=== PATIENT | female | born 1950 | race Caucasian/White ===

== ENCOUNTER 2018-04-27 19:36 | Inpatient (IN) | payer OTHER, MEDICAID ==
[~2018-04-27] VITALS: Ht 165.1 cm; Wt 88.3 kg
[~2018-04-27 19:36] MED LIST: ACET325T12 PO; ALBU2.5V2 IH; ARIP2TAB3 PO; ASPI-667 PO; CLON0.5T3 PO; DEXT15DR5 BOTH EYES; DOCU-123 PO; FLUT1DIS3 IH; GABA800T PO; GLYB2.5T2 PO; INSU100I13 SQ; INSU100V5 IJ; LORA10TA75 PO; MAGN2400 PO; METF10003 PO; MIRT30TA PO; PANT40TA3 PO; RISP1TAB45 PO; TRAM50TA PO; TRAZ100T15 PO; [UNRECOGNIZED DRUG - CODE] MC
[2018-04-27] MEDS ORDERED: GLYB5TAB3 PO (20:01)
[2018-04-27 20:08] VITALS: BP 107/78
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
[2018-04-27 20:12] LABS: BASOPHIL % 0.2 % (0.0-0.2); EOSINOPHIL # 0.2 10^3/uL (0.0-0.2); EOSINOPHIL % 2.6 % (0.0-5.0); HEMOGLOBIN 11.1 g/dL (12.0-15.0); LYMPHOCYTES # 2.5 10^3/uL (1.0-4.8); MEAN CELL HGB 31.2 pg (26-34); MEAN CELL HGB CONCENTRATION 30.2 g/dL (33-37); MEAN CORP VOLUME 103.1 fL (78-100); MEAN PLATELET VOLUME 10.2 fL (7.8-11.0); MONOCYTES # 0.9 10^3/uL (0.3-0.8); MONOCYTES % 10.9 % (5.0-12.0); NEUTROPHIL # 4.8 10^3/uL (1.8-7.7); RED CELL DISTRIBUTION WIDTH 13.8 % (11.5-14.5); WHITE BLOOD CELL 8.6 10^3/uL (4.5-11.0)
[2018-04-27 20:16] LABS: BILIRUBIN,URINE 1 MG/DL (NEGATIVE); UROBILINOGEN,URINE NORMAL (NEGATIVE)
[2018-04-27] MEDS ORDERED: LORA-447 PO (20:36)
[2018-04-27] MEDS ORDERED: DESV50TA PO (20:36)
[2018-04-27] MEDS ORDERED: TOPI50TA35 PO (20:36)
[2018-04-27] MEDS ORDERED: OXYB10TA PO (20:36)
[2018-04-27] MEDS ORDERED: POLY17PO5 PO (20:36)
[2018-04-27] MEDS ORDERED: BENZ1TAB5 PO (20:36)
[2018-04-27] MEDS ORDERED: AMLO2.5T2 PO (20:36)
[2018-04-27] MEDS ORDERED: ROPI1TAB PO (20:36)
[2018-04-27] MEDS ORDERED: CYCL1DRO OP (20:36)
[2018-04-27] MEDS ORDERED: QUET50TA5 PO (20:36)
[2018-04-27] MEDS ORDERED: LEVO100T5 PO (20:36)
[2018-04-27] MEDS ORDERED: ASPI-484 PO (20:36)
[2018-04-27] MEDS ORDERED: METO-236 PO (20:36)
[2018-04-27] MEDS ORDERED: PREG50CA PO (20:36)
[2018-04-27] MEDS ORDERED: QUET300T5 PO (20:36)
[2018-04-27] MEDS ORDERED: CARB1TAB2 PO (20:36)
[2018-04-27] MEDS ORDERED: LISI10TA2 PO (20:36)
[2018-04-27] MEDS ORDERED: ATOR40TA PO (20:36)
[2018-04-27] MEDS ORDERED: INSU100I13 SQ ×2 (20:36)
[2018-04-27 20:48] LABS: APPEARANCE,URINE CLOUDY (CLEAR); UA COLOR YELLOW (YELLOW)
[2018-04-27 20:56] LABS: ABG PCO2 44.4 mmHg (35.0-45.0); ABG PH 7.246 (7.350-7.450); BE(B) -8.1 mmol/L (-2.0-2.0); HCO3act 18.9 mmol/L (22.0-26.0); pO2 76.5 mmHg (75.0-100.0)
[2018-04-27 21:00] LABS: ALANINE AMINOTRANSFERASE(ML) 22 U/L (12-78); ALKALINE PHOSPHATASE 146 U/L (50-136); ASPARTATE AMINO TRANSFERASE 62 U/L (0-35); CALCIUM 8.7 mg/dL (8.4-10.5); CARBON DIOXIDE 21.2 mmol/L (20.0-32); GLUCOSE 135 mg/dL (70-110)
--- NOTE | 2018-04-27 21:06 | NUR ---
CRITICAL LAB VALUES: LAB REPORTED CRITICAL LAB VALUES FOLLOWS: K+-6.2 CK-1836.4 CK-MB: 15.2 CRITICAL VALUES REPORTED TO EDP.
[2018-04-27 21:10] VITALS: BP 112/62
--- NOTE | 2018-04-27 21:10 | PCM.EKG ---
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
[2018-04-27] MEDS ORDERED: SODIUM BICARBONATE IV STA (21:24)
[2018-04-27] MEDS ORDERED: ROCEPHIN 1,000 MG in NS 100ML 100 ML IV STA (21:24)
[2018-04-27] MEDS ORDERED: NS IV STA (21:24)
[2018-04-27] MEDS ORDERED: VENTOLIN IH STA (21:24)
[2018-04-27] MEDS ORDERED: SPS PO STA (21:24)
[2018-04-27] MEDS ORDERED: DEXTROSE 50%-WATER SYRINGE IV STA (21:24)
[2018-04-27] MEDS ORDERED: HUMULIN R IV ONE (21:30)
[2018-04-27] MEDS ORDERED: NS 100ML 100 ML IV ONE (21:37)
[2018-04-27] MEDS ORDERED: NS 1000ML 1,000 ML ONE (21:37)
[2018-04-27] MEDS ORDERED: SODIUM BICARBONATE IV ONE (21:37)
[2018-04-27] MEDS ORDERED: DEXTROSE 50%-WATER SYRINGE IV ONE (21:37)
[2018-04-27] MEDS ORDERED: ROCEPHIN ONE (21:37)
[2018-04-27] MEDS ORDERED: SPS ONE (21:37)
--- NOTE | 2018-04-27 21:45 | DIREP ---
PROCEDURE:CHEST 1 VIEW COMPARISON:[facility], , CHEST 1 VIEW, 01/02/2015, 03:41 PM. INDICATIONS:medical clearance FINDINGS: LUNGS/PLEURA:No significant pulmonary parenchymal abnormalities. No effusions. VASCULATURE:Normal. Unremarkable pulmonary vasculature. CARDIAC:Normal. No cardiac silhouette abnormality or cardiomegaly. MEDIASTINUM:Normal. No visible mass or adenopathy. BONES:Plate and screw fixation of right clavicle. Fusion hardware lower cervical spine. Remote right posterior lateral rib fractures. OTHER:Negative. CONCLUSION:No acute cardiopulmonary process. Dictated by: Benito Fleming M.D. on 04/27/2018 at 09:43 PM
--- NOTE | 2018-04-27 22:05 | NUR ---
DR. DYKES: EDP ON PHONE WITH DR. DYKES.
[2018-04-27] MEDS ORDERED: VENTOLIN IH ONE (22:20)
[2018-04-27 22:35] VITALS: BP 107/81
--- NOTE | 2018-04-27 23:15 | NUR ---
Patient admitted to [facility] via stretcher. Received report from BRISSA Gomes. Patient stable. Nasal canula in place O2 @2. Bed alarm on
[2018-04-27] MEDS: NS 1000ML 1,000 ML SCH (23:49)
[2018-04-28 00:10] VITALS: BP 96/58
[2018-04-28] MEDS ORDERED: LANOLIN HYDROUS TP ONE (03:47)
[2018-04-28 03:55] VITALS: BP 123/55
[2018-04-28 05:44] LABS: CALCIUM 8.1 mg/dL (8.4-10.5); CARBON DIOXIDE 23.8 mmol/L (20.0-32)
--- NOTE | 2018-04-28 06:46 | NUR ---
Report Report given to oncoming shift
[2018-04-28 08:32] VITALS: BP 142/87
--- NOTE | 2018-04-28 10:00 | NUR ---
Pt TRY TO GET OUT OF BED BYSELF, DID NOT USE CALL LIGHT, REENFORCED PT TO USE CALL LIGHT, BED ALARM ON.
[2018-04-28] MEDS: NS 1000ML 1,000 ML SCH ×3 (10:11→23:52)
[2018-04-28] MEDS: COGENTIN PO SCH (11:50)
[2018-04-28 13:00] VITALS: BP 124/72
--- NOTE | 2018-04-28 14:01 | NUR ---
TELE RHYTHM NOTICED TORSADE POINTE IN TELE MONITOR NEAR NURSES STATION, Pt ASSYMPTOMATIC, NOTIFIED DR. DYKES VIA TEXT.
[2018-04-28] MEDS ORDERED: ARTIFICIAL TEARS BOTH EYES PRN (14:30)
[2018-04-28] MEDS: COLACE PO SCH ×3 (14:53→21:39)
[2018-04-28] MEDS: SINEMET 25/100 PO SCH ×2 (14:53→21:39)
--- NOTE | 2018-04-28 14:56 | NUR ---
pT refused colace 100 mg states " honey I have been going to have bowel movement", pT had 2 bm today.
[2018-04-28] MEDS: ULTRAM PO PRN (16:19)
[2018-04-28 17:10] VITALS: BP 144/62
--- NOTE | 2018-04-28 17:19 | NUR ---
Patient had very large bowel movement about 1600.
[2018-04-28] MEDS ORDERED: ROCEPHIN ONE (17:28)
[2018-04-28] MEDS ORDERED: NS 100ML 100 ML IV ONE (17:28)
[2018-04-28] MEDS ORDERED: ROCEPHIN 1,000 MG in NS 100ML 100 ML IV SCH (17:30)
--- NOTE | 2018-04-28 19:16 | NUR ---
REPORT REPORT RECEIVED FROM PREVIOUS SHIFT AND ASSUMED CARE OF PT
[2018-04-28 19:39] VITALS: BP 141/72
[2018-04-28] MEDS: RESTASIS OP SCH (21:00)
[2018-04-28] MEDS: DESYREL PO SCH (21:38)
[2018-04-28] MEDS: SEROQUEL PO SCH ×2 (21:38)
[2018-04-28] MEDS: ATIVAN PO SCH (21:39)
[2018-04-28] MEDS: DITROPAN PO SCH (21:39)
[2018-04-28] MEDS: TOPAMAX PO SCH (21:39)
[2018-04-28] MEDS: LYRICA PO SCH (21:39)
[2018-04-28] MEDS: REQUIP PO SCH (21:39)
[2018-04-28] MEDS: LIPITOR PO SCH (21:39)
[2018-04-29 00:05] VITALS: BP 126/55
[2018-04-29 04:26] VITALS: BP 144/70
[2018-04-29 06:31] LABS: BASOPHIL % 0.3 % (0.0-0.2); EOSINOPHIL # 0.2 10^3/uL (0.0-0.2); EOSINOPHIL % 2.3 % (0.0-5.0); HEMOGLOBIN 10.6 g/dL (12.0-15.0); LYMPHOCYTES # 2.8 10^3/uL (1.0-4.8); LYMPHOCYTES % 39.6 % (24.0-44.0); MEAN CELL HGB 31.3 pg (26-34); MEAN CELL HGB CONCENTRATION 31.5 g/dL (33-37); MEAN CORP VOLUME 99.4 fL (78-100); MEAN PLATELET VOLUME 10.9 fL (7.8-11.0); MONOCYTES # 0.8 10^3/uL (0.3-0.8); MONOCYTES % 11.4 % (5.0-12.0); NEUTROPHIL # 3.3 10^3/uL (1.8-7.7); NEUTROPHILS % 46.3 % (41.0-85.0); RED CELL DISTRIBUTION WIDTH 13.7 % (11.5-14.5); WHITE BLOOD CELL 7.1 10^3/uL (4.5-11.0)
[2018-04-29 06:43] LABS: CALCIUM 8.3 mg/dL (8.4-10.5); CARBON DIOXIDE 23.9 mmol/L (20.0-32)
[2018-04-29] MEDS: SYNTHROID PO SCH (06:43)
--- NOTE | 2018-04-29 06:50 | NUR ---
REPORT GAVE HANDOFF REPORT TO ONCOMING SHIFT
[2018-04-29 08:00] VITALS: BP 151/71
--- NOTE | 2018-04-29 08:15 | HPH ---
ADMIT DATE: 04/28/2018 CHIEF COMPLAINT: Reported aggressive behavior. HISTORY OF PRESENT ILLNESS: The patient is a 68-year-old woman with a past medical history significant for numerous medical problems, on a very long list of medications, who had presented to the ER from [place] for medical clearance for inpatient psychiatric care. She has history of diabetes mellitus type 2, hyperlipidemia, hypertension, chronic kidney disease reportedly, hypothyroidism, COPD, numerous other medical problems. She is on an extremely long list of medications, is insulin-dependent diabetic. Most of history is difficult to obtain due to her psychiatric comorbidities. She is reportedly a [facility] resident, has a history of bipolar disorder, possible schizophrenia. She has had worsening auditory hallucinations. She is cooperative. No other acute changes. Workup in ER did reveal significant renal failure with mild hyperkalemia. PAST MEDICAL HISTORY: Includes Parkinson's disease, coronary artery disease, COPD, hypothyroidism, insulin-dependent diabetes, hyperlipidemia, hypertension, multiple psychiatric diseases. PAST SURGICAL HISTORY: She reportedly has a right nephrectomy. ALLERGIES: Allergic to SULFA, CODEINE and MORPHINE. HOME MEDICATIONS: List includes Tylenol as needed, Norvasc 2.5 mg daily, aspirin 81 mg daily, atorvastatin 40 mg at night, benztropine 1 mg daily, Sinemet 25/100 mg 3 times a day, Restasis eyedrops, Pristiq 50 mg daily, Colace 100 mg 3 times a day, glyburide 5 mg daily. She takes Lantus 20 units at night and 20 units in the morning, regular insulin sliding scale, levothyroxine 100 mcg daily, lisinopril 10 mg daily, lorazepam 0.5 mg twice a day, metformin 1 gram twice a day, metoprolol succinate 25 mg daily, oxybutynin 10 mg daily, Protonix 40 mg daily, MiraLax 17 g daily, Lyrica 50 mg twice a day, Seroquel 300 mg at night and 50 mg twice a day, Requip 1 mg at night, Topamax 50 mg b.i.d., tramadol p.r.n., trazodone 100 mg at night. SOCIAL HISTORY: Resident of a [facility]. No current alcohol, tobacco or illicit drug use history reported. FAMILY HISTORY: Negative for early coronary artery disease or diabetes. REVIEW OF SYSTEMS: CARDIAC: She denies chest pain or shortness of breath. PULMONARY: No cough, sputum production or pleuritic chest pain. GASTROINTESTINAL: No nausea, vomiting, diarrhea or constipation. All else negative in 10 point review of system except as in HPI. PHYSICAL EXAMINATION: VITAL SIGNS: Upon arrival to the ER, height 165.1 cm, weight 94.1 kilograms, temperature 98.1, pulse 68, respiratory rate 16, blood pressure 107/78, O2 saturation 94% on room air. GENERAL: She is alert, in no acute distress at time of exam. HEENT: Pupils equal, round, reactive to light. Sclerae are anicteric. Oropharynx is clear. Mucous membranes are moist. NECK: Supple, no lymphadenopathy. CARDIOVASCULAR: At time of exam was regular rate and rhythm with occasional ectopy. LUNGS: Clear bilaterally. No wheezing. ABDOMEN: Soft, obese. Bowel sounds are present. EXTREMITIES: No cyanosis, clubbing or significant edema. NEUROLOGIC: Grossly nonfocal. LABORATORY DATA: CBC: White count 3.6, hemoglobin 11.1 and platelets 209. Differential 56% neutrophils, 29% lymphocytes, 11% monocytes. Sodium 138, potassium 6.2, chloride 105, CO2 is 21, BUN 58, creatinine 2.37, glucose 135, calcium is 8.7, total bilirubin 0.3, AST 62, ALT 22, alkaline phosphatase 146, total CK is 1836, CK-MB is 15.2. Troponin I is less than 0.02. C-reactive protein is 0.98. ProBNP 157, total protein 6.4, albumin 3.3. Folate of 7.2. TSH 0.75. B12 is 309. UA is a contaminated sample, not useful for clinical diagnosis; however, does have many bacteria, but negative nitrite. Urine drug screen is negative. IMAGING STUDIES: Chest x-ray performed in the Emergency Room, no acute cardiopulmonary disease process. ASSESSMENT AND PLAN: The patient is a 68-year-old woman here with acute renal failure secondary to acute tubular necrosis due to dehydration with mild hyperkalemia, mild rhabdomyolysis with anemia due to chronic disease, numerous other medical problems. 1. We will give IV fluid hydration. 2. Renal dose medications. 3. She was treated for the hyperkalemia in the Emergency Room. 4. We will continue sliding scale insulin for now. 5. Psychiatry consult. She was sent here for inpatient psychiatric care. 6. IV antibiotics for now. We will continue Rocephin, started in the Emergency Room. Follow up urine cultures for susceptibilities. This was a contaminated sample. Time spent on 04/28/2018 is 45 minutes. Molina Wei MD DR: FROY/lux JOB# [id number] JURGEN
[2018-04-29] MEDS: RESTASIS OP SCH ×2 (09:00→20:15)
[2018-04-29] MEDS: MIRALAX PO SCH ×2 (09:00→11:39)
[2018-04-29] MEDS: SINEMET 25/100 PO SCH ×3 (09:08→20:33)
[2018-04-29] MEDS: COLACE PO SCH ×3 (09:08→20:27)
[2018-04-29] MEDS: ZESTRIL PO SCH (09:08)
[2018-04-29] MEDS: TOPROL XL PO SCH (09:08)
[2018-04-29] MEDS: SEROQUEL PO SCH ×3 (09:09→20:33)
[2018-04-29] MEDS: NORVASC PO SCH (09:09)
[2018-04-29] MEDS: LYRICA PO SCH ×2 (09:09→20:30)
[2018-04-29] MEDS: ATIVAN PO SCH ×2 (09:09→20:28)
[2018-04-29] MEDS: TOPAMAX PO SCH ×2 (09:09→20:31)
[2018-04-29] MEDS: ASPIRIN EC PO SCH (09:10)
[2018-04-29] MEDS: DITROPAN PO SCH ×2 (09:10→20:28)
[2018-04-29] MEDS: NS 1000ML 1,000 ML SCH (09:47)
--- NOTE | 2018-04-29 10:00 | NUR ---
TELE D/C PER VERBAL ORDER OF DR. DYKES.
[2018-04-29] MEDS: COGENTIN PO SCH (11:38)
[2018-04-29 14:15] VITALS: BP 130/74
--- NOTE | 2018-04-29 17:00 | NUR ---
NOTIFIED DR. DYKES REGARDING PtS IV ANTIBIOTIC ROCEFIN AND TO CHANGE TO PO, PER DR. JANIA DYKES ANTIBIOTIC WILL CHANGE TO PO.
--- NOTE | 2018-04-29 17:00 | NUR ---
IV INFILTRATED NOTIFIED DR. DYKES VIA TELEPHONE BY CHARGE NURSE AL BRUMFIELD RECEIVED AN ORDER TO D/C IV, IV D/C APPLIED COLD PACK TO THE SITE.
[2018-04-29 18:00] VITALS: BP 132/59
--- NOTE | 2018-04-29 19:12 | NUR ---
report report received from offgoing shift
[2018-04-29 20:18] VITALS: BP 139/85
[2018-04-29] MEDS: DESYREL PO SCH (20:27)
[2018-04-29] MEDS: ULTRAM PO PRN (20:28)
[2018-04-29] MEDS: LIPITOR PO SCH (20:28)
[2018-04-29] MEDS: REQUIP PO SCH (20:31)
[2018-04-29] MEDS: MACROBID PO SCH (20:41)
--- NOTE | 2018-04-29 23:06 | PNH ---
DATE: 04/29/2018 SUBJECTIVE: No significant events overnight. She is tolerating diet well. She has been cooperative, but confused. OBJECTIVE: VITAL SIGNS: T-max last 24 hours is 98.5, pulse of 52, respiratory rate is 18, blood pressure 132/59 and O2 saturation 95% on room air. GENERAL: She is alert, in no acute distress at time of exam. HEENT: Pupils equal, round, reactive to light. Sclerae are anicteric. Oropharynx is clear. Mucous membranes are moist. NECK: Supple, no lymphadenopathy. CARDIOVASCULAR: At time of exam was regular rate and rhythm. LUNGS: Clear bilaterally. No wheezing. ABDOMEN: Soft, obese. Bowel sounds are present. EXTREMITIES: No cyanosis, clubbing or significant edema. NEUROLOGIC: Grossly nonfocal. LABORATORY DATA: CBC: White count 7.1, hemoglobin 10.6 and platelets 75. Sodium 145, potassium 3.7, chloride 110, CO2 24, BUN 22, creatinine 1.19, glucose 174, calcium is 8.3. ASSESSMENT AND PLAN: The patient is a 68-year-old woman here with resolved hyperkalemia and acute renal failure secondary to acute tubular necrosis with anemia due to chronic disease and thrombocytopenia with numerous other medical problems. 1. We will continue current cardiovascular medications. 2. We will continue her Parkinson's medications. She seems to be well controlled. 3. Likely will be cleared for admissions to Geropsych Unit tomorrow morning if she has a good night tonight. 4. She has acute thrombocytopenia. We will follow clinically. Recheck labs in a.m. Time spent on 04/29/2018 is 25 minutes. Molina Wei MD DR: FROY/lux JOB# [id number]
[2018-04-30 00:15] VITALS: BP 145/66
[2018-04-30 05:10] VITALS: BP 113/63
[2018-04-30] MEDS: SYNTHROID PO SCH (06:09)
[2018-04-30 06:32] LABS: BASOPHIL % 0.4 % (0.0-0.2); EOSINOPHIL # 0.2 10^3/uL (0.0-0.2); HEMOGLOBIN 12.1 g/dL (12.0-15.0); LYMPHOCYTES # 3.5 10^3/uL (1.0-4.8); LYMPHOCYTES % 46.8 % (24.0-44.0); MEAN CELL HGB 31.3 pg (26-34); MEAN CELL HGB CONCENTRATION 31.9 g/dL (33-37); MEAN CORP VOLUME 98.2 fL (78-100); MEAN PLATELET VOLUME 10.3 fL (7.8-11.0); MONOCYTES # 0.9 10^3/uL (0.3-0.8); MONOCYTES % 11.2 % (5.0-12.0); NEUTROPHIL # 2.9 10^3/uL (1.8-7.7); NEUTROPHILS % 38.2 % (41.0-85.0); RED CELL DISTRIBUTION WIDTH 13.8 % (11.5-14.5); WHITE BLOOD CELL 7.6 10^3/uL (4.5-11.0)
--- NOTE | 2018-04-30 06:43 | NUR ---
report report given to o/c shift
[2018-04-30 06:50] LABS: CALCIUM 8.8 mg/dL (8.4-10.5); CARBON DIOXIDE 24.2 mmol/L (20.0-32)
--- NOTE | 2018-04-30 07:00 | NUR ---
REPORT RECEIVED REPORT, ASSUMED CARE FOR PATIENT AT THIS TIME.
--- NOTE | 2018-04-30 08:38 | PRM.DC ---
Discharge Summary Date of Discharge: Apr 30, 2018 Reason for Visit: Renal failure Patient History: No Family History of: Alzheimer's disease Asthma Cerebrovascular disorder Chronic obstructive pulmonary disease Congestive heart failure Diabetes insipidus Diabetes mellitus Hypertension Parkinson's disease Unknown History Present Illness: (1) Acute renal failure Status: Resolved ICD Code: N17.9 - Acute kidney failure, unspecified SNOMED: 20145557 (2) Hyperkalemia, diminished renal excretion Status: Resolved ICD Code: E87.5 - Hyperkalemia SNOMED: 08021538 (3) Bipolar disorder Status: Acute ICD Code: F31.9 - Bipolar disorder, unspecified SNOMED: 01064340 General: Alert, Cooperative, No acute distress HEENT: PERRLA, EOMI Neck: Supple, No JVD Lungs: Clear to auscultation, Normal air movement Heart: Regular rate, Normal S1, Normal S2 Abdomen: Normal bowel sounds, Soft, No tenderness Extremities: No cyanosis Skin: No breakdown Neuro: Normal speech, Cranial nerves 3-12 NL Psych/Mental Status: Mood NL Results(Labs/Rad) Laboratory Tests Test 04/29/18 05:40 04/30/18 06:05 White Blood Count 7.1 10^3/uL 7.6 10^3/uL Red Blood Count 3.39 10^6/uL 3.86 10^6/uL Hemoglobin 10.6 g/dL 12.1 g/dL Hematocrit 33.7 % 37.9 % Mean Corpuscular Volume 99.4 fL 98.2 fL Mean Corpuscular Hemoglobin 31.3 pg 31.3 pg Mean Corpuscular Hemoglobin Concent 31.5 g/dL 31.9 g/dL Red Cell Distribution Width 13.7 % 13.8 % Platelet Count 75 10^3/uL 212 10^3/uL Mean Platelet Volume 10.9 fL 10.3 fL Neutrophils (%) (Auto) 46.3 % 38.2 % Lymphocytes (%) (Auto) 39.6 % 46.8 % Monocytes (%) (Auto) 11.4 % 11.2 % Neutrophils # (Auto) 3.3 10^3/uL 2.9 10^3/uL Lymphocytes # (Auto) 2.8 10^3/uL 3.5 10^3/uL Monocytes # (Auto) 0.8 10^3/uL 0.9 10^3/uL Absolute Immature Granulocyte (auto 0.01 10^3 u/L 0.03 10^3 u/L Eosinophils % 2.3 % 3.0 % Basophils % 0.3 % 0.4 % Basophils # 0.0 10^3/uL 0.0 10^3/uL Eosinophil Count 0.2 10^3/uL 0.2 10^3/uL Sodium Level 145 mmol/L 143 mmol/L Potassium Level 3.7 mmol/L 3.8 mmol/L Chloride Level 110.0 mmol/L 109.0 mmol/L Carbon Dioxide Level 23.9 mmol/L 24.2 mmol/L Glucose Level 174 mg/dL 212 mg/dL Blood Urea Nitrogen 22 mg/dL 12 mg/dL Creatinine 1.19 mg/dL 1.07 mg/dL Calcium Level 8.3 mg/dL 8.8 mg/dL Anion Gap 14.8 13.6 Estimated GFR () 54.4 61.5 BUN/Creatinine Ratio 18.0 11.0 Percent Immature Gran (Cell Imm) 0.10 % 0.40 % Scheduled Amlodipine Besylate (Norvasc), 1 TAB PO DAILY, (Reported) Aspirin (Aspir 81), 1 TAB PO DAILY, (Reported) Atorvastatin 40MG (Lipitor 40MG), 1 TAB PO HS, (Reported) Benztropine Mesylate (Benztropine Mesylate), 1 TAB PO DAILY24, (Reported) Blood Sugar Diagnostic (Accu-Chek Active), 1 EACH MC ACHS, (Reported) Carbidopa/Levodopa (Sinemet 25-100 Mg Tablet), 1 TAB PO TID, (Reported) Cyclosporine (Restasis), 1 DROP OP BID, (Reported) Desvenlafaxine Succinate (Pristiq Er), 50 TAB PO DAILY, (Reported) Docusate Sodium (Colace), 1 CAP PO TID, (Reported) Glyburide (Glyburide), 1 TAB PO DAILY24, (Reported) Insulin Glargine,Hum.rec.anlog (Lantus Solostar), 20 UNITS SQ HS, (Reported) Insulin Glargine,Hum.rec.anlog (Lantus Solostar), 20 UNITS SQ ACB, (Reported) Levothyroxine Sodium (Levothyroxine Sodium), 1 TAB PO DAILY, (Reported) Lisinopril (Lisinopril), 10 TAB PO DAILY, (Reported) Lorazepam (Ativan), 0.5 MG PO BID, (Reported) Metformin Hcl (Metformin Hcl), 1 TAB PO BID, (Reported) Metoprolol Succinate (Metoprolol Succinate), 1 TAB PO DAILY, (Reported) Oxybutynin Chloride (Oxybutynin Chloride Er), 1 TAB PO DAILY, (Reported) Pantoprazole Sodium (Protonix), 1 TAB PO DAILY, (Reported) Polyethylene Glycol 3350 (Miralax), 1 PKT PO DAILY, (Reported) Pregabalin (Lyrica), 1 CAP PO BID, (Reported) Quetiapine Fumarate (Seroquel), 1 TAB PO HS, (Reported) Quetiapine Fumarate (Seroquel), 50 MG PO BID, (Reported) Ropinirole Hcl (Requip), 1 TAB PO HS, (Reported) Topiramate (Topamax), 1 TAB PO BID, (Reported) Trazodone Hcl (Trazodone Hcl), 1 TAB PO HS, (Reported) Scheduled PRN Acetaminophen (Tylenol), 2 TAB PO Q4HR PRN for PAIN, (Reported) Dextran 70/Hypromellose (Artificial Tears Eye Drops), 1 DROP BOTH EYES Q4HR PRN for DRY EYES, (Reported) Insulin Regular, Human (Humulin R), 100 UNIT IJ ACHS PRN for HYPERGLYCEMIA, ( Reported) Tramadol Hcl (Tramadol Hcl), 1 TAB PO Q6 PRN for PAIN 8-10, (Reported) Discontinued Medications Albuterol Sulfate (Albuterol Sulfate), 2.5 MG IH for COPD, (Reported) Discontinued Reason: No Longer Taking Clonazepam (Clonazepam), 1 TAB PO TID, (Reported) Discontinued Reason: No Longer Taking Fluticasone/Salmeterol (Advair 250-50 Diskus), 1 PUFF IH BID, (Reported) Discontinued Reason: No Longer Taking Gabapentin (Neurontin), 1 TAB PO TID, (Reported) Discontinued Reason: Discontinue Glyburide (Glyburide), 1 TAB PO BID, (Reported) Discontinued Reason: Prescription changed Insulin Glargine,Hum.rec.anlog (Lantus Solostar), 85 UNITS SQ HS, (Reported) Discontinued Reason: No Longer Taking Loratadine (Claritin), 1 TAB PO BID PRN for ALLERGIES, (Reported) Discontinued Reason: No Longer Taking Magnesium Hydroxide (Milk Of Magnesia), 1,200 MG PO HS, (Reported) Discontinued Reason: No Longer Taking Mirtazapine (Remeron), 1 TAB PO HS, (Reported) Discontinued Reason: Discontinue Sepsis Evaluation @ Discharge 04/30/18 05:19 Course Sepsis Screening Results: Posi: NEGATIVE Sepsis Qualifier/Stage: NO DEFINITE RISK Vitals & review Data Vital Sign - Last 24 Hours 04/29/18 04/29/18 04/29/18 04/29/18 09:00 09:08 09:09 14:15 Temp 97.8 Pulse 60 77 Resp 18 B/P (MAP) 151/71 151/71 130/74 (92) Pulse Ox 97 O2 Delivery Room Air Room Air 04/29/18 04/29/18 04/29/18 04/30/18 18:00 20:18 22:28 00:15 Temp 98.5 98.2 98.1 Pulse 52 58 60 Resp 18 20 18 B/P (MAP) 132/59 (83) 139/85 (103) 145/66 (92) Pulse Ox 95 96 90 O2 Delivery Room Air Room Air Room Air Room Air 04/30/18 05:10 Temp 98.3 Pulse 58 Resp 16 B/P (MAP) 113/63 (80) Pulse Ox 90 O2 Delivery Room Air Intake and Output 04/29/18 04/29/18 04/30/18 15:00 23:00 07:00 Intake Total 600 ml 310 ml Output Total 600 ml 1000 ml 1900 ml Balance 0 ml -690 ml -1900 ml Laboratory Tests Test 04/29/18 05:40 04/30/18 06:05 White Blood Count 7.1 10^3/uL 7.6 10^3/uL Red Blood Count 3.39 10^6/uL 3.86 10^6/uL Hemoglobin 10.6 g/dL 12.1 g/dL Hematocrit 33.7 % 37.9 % Mean Corpuscular Volume 99.4 fL 98.2 fL Mean Corpuscular Hemoglobin 31.3 pg 31.3 pg Mean Corpuscular Hemoglobin Concent 31.5 g/dL 31.9 g/dL Red Cell Distribution Width 13.7 % 13.8 % Platelet Count 75 10^3/uL 212 10^3/uL Mean Platelet Volume 10.9 fL 10.3 fL Neutrophils (%) (Auto) 46.3 % 38.2 % Lymphocytes (%) (Auto) 39.6 % 46.8 % Monocytes (%) (Auto) 11.4 % 11.2 % Neutrophils # (Auto) 3.3 10^3/uL 2.9 10^3/uL Lymphocytes # (Auto) 2.8 10^3/uL 3.5 10^3/uL Monocytes # (Auto) 0.8 10^3/uL 0.9 10^3/uL Absolute Immature Granulocyte (auto 0.01 10^3 u/L 0.03 10^3 u/L Eosinophils % 2.3 % 3.0 % Basophils % 0.3 % 0.4 % Basophils # 0.0 10^3/uL 0.0 10^3/uL Eosinophil Count 0.2 10^3/uL 0.2 10^3/uL Sodium Level 145 mmol/L 143 mmol/L Potassium Level 3.7 mmol/L 3.8 mmol/L Chloride Level 110.0 mmol/L 109.0 mmol/L Carbon Dioxide Level 23.9 mmol/L 24.2 mmol/L Glucose Level 174 mg/dL 212 mg/dL Blood Urea Nitrogen 22 mg/dL 12 mg/dL Creatinine 1.19 mg/dL 1.07 mg/dL Calcium Level 8.3 mg/dL 8.8 mg/dL Anion Gap 14.8 13.6 Estimated GFR () 54.4 61.5 BUN/Creatinine Ratio 18.0 11.0 Percent Immature Gran (Cell Imm) 0.10 % 0.40 % Current Medications Medications (Trade) Dose Ordered Sig/Jenifer PRN Reason Start Time Stop Time Status Last Admin Amlodipine Besylate (Norvasc) 2.5 mg DAILY 04/29/18 09:00 05/29/18 08:59 04/29/18 09:09 Artificial Tears (Artificial Tears) 1 drops Q4H PRN 04/28/18 14:30 05/28/18 14:29 Aspirin (Aspirin Ec) 81 mg DAILY 04/29/18 09:00 05/29/18 08:59 04/29/18 09:10 Atorvastatin Calcium (Lipitor) 40 mg HS 04/28/18 21:00 05/28/18 20:59 04/29/18 20:28 Benztropine Mesylate (Cogentin) 1 mg DAILY24 04/28/18 11:30 05/28/18 11:29 04/29/18 11:38 Carbidopa/Levodopa (Sinemet 25/100) 1 each TID 04/28/18 15:00 05/28/18 14:59 04/29/18 20:33 Cyclosporine (Restasis) 1 ml BID 04/28/18 21:00 05/28/18 20:59 Docusate Sodium (Colace) 100 mg TID 04/28/18 15:00 05/28/18 14:59 04/29/18 20:27 Levothyroxine Sodium (Synthroid) 100 mcg ACB 04/29/18 06:30 05/29/18 06:29 04/30/18 06:09 Lisinopril (Zestril) 10 mg DAILY 04/29/18 09:00 05/29/18 08:59 04/29/18 09:08 Lorazepam (Ativan) 0.5 mg BID 04/28/18 21:00 05/28/18 20:59 04/29/18 20:28 Metoprolol Succinate (Toprol Xl) 25 mg DAILY 04/29/18 09:00 05/29/18 08:59 04/29/18 09:08 Nitrofurantoin Macrocrystals (Macrobid) 100 mg BID 04/29/18 21:00 05/29/18 20:59 04/29/18 20:41 Oxybutynin Chloride (Ditropan) 5 mg BID 04/28/18 21:00 05/28/18 20:59 04/29/18 20:28 Polyethylene Glycol (Miralax) 17 gm DAILY 04/29/18 09:00 05/29/18 08:59 04/29/18 11:39 Pregabalin (Lyrica) 50 mg BID 04/28/18 21:00 05/28/18 20:59 04/29/18 20:30 Quetiapine Fumarate (Seroquel) 50 mg BID 04/28/18 21:00 05/28/18 20:59 04/29/18 20:33 Quetiapine Fumarate (Seroquel) 300 mg HS 04/28/18 21:00 05/28/18 20:59 04/29/18 20:32 Ropinirole HCl (Requip) 1 mg HS 04/28/18 21:00 05/28/18 20:59 04/29/18 20:31 Topiramate (Topamax) 50 mg BID 04/28/18 21:00 05/28/18 20:59 04/29/18 20:31 Tramadol HCl (Ultram) 50 mg Q6 PRN PAIN 8-10 04/28/18 11:30 05/28/18 11:29 04/29/18 20:28 Trazodone HCl (Desyrel) 100 mg HS 04/28/18 21:00 05/28/18 20:59 04/29/18 20:27 Plan Discharge Date: Apr 30, 2018 Dicharge DX: 1. Acute renal failure, 2. Hyperkalemia, 3. Bipolar disorder Discharge Disposition: Stable Plan Medications per discharge list Diet and activity as tolerated Discharge to [facility] per court order Time spent 25 minutes Problem Qualifiers (1) Acute renal failure: Acute renal failure type: with acute tubular necrosis Qualified Codes: N17.0 - Acute kidney failure with tubular necrosis (2) Bipolar disorder: Active/Remission status: currently active Current bipolar episode type: hypomanic Qualified Codes: F31.0 - Bipolar disorder, current episode hypomanic YESICA DYKES MD Apr 30, 2018 08:37
[2018-04-30 08:47] VITALS: BP 150/110
[2018-04-30] MEDS: TOPAMAX PO SCH (08:54)
[2018-04-30] MEDS: COLACE PO SCH (08:54)
[2018-04-30] MEDS: NORVASC PO SCH (08:55)
[2018-04-30] MEDS: LYRICA PO SCH (08:55)
[2018-04-30] MEDS: ATIVAN PO SCH (08:55)
[2018-04-30] MEDS: MACROBID PO SCH (08:55)
[2018-04-30] MEDS: SINEMET 25/100 PO SCH (08:55)
[2018-04-30] MEDS: ZESTRIL PO SCH (08:55)
[2018-04-30] MEDS: TOPROL XL PO SCH (08:55)
[2018-04-30] MEDS: ASPIRIN EC PO SCH (08:55)
[2018-04-30] MEDS: DITROPAN PO SCH (08:55)
[2018-04-30] MEDS: SEROQUEL PO SCH (08:56)
[2018-04-30] MEDS: RESTASIS OP SCH (09:00)
[2018-04-30] MEDS: MIRALAX PO SCH (09:00)
[2018-04-30 09:19] VITALS: BP 150/110
--- NOTE | 2018-04-30 09:22 | NUR ---
DISCHARGE PATIENT BEING DISCHARGED AT THIS TIME IN STABLE CONDITION. PATIENT BEING [facility] IN [place], [place]. DENIES NEEDING ADDITIONAL RESOURCES AT THIS TIME. COURT ORDERED PAPERS PRESENT. RELINQUISHED CARE FOR PATIENT AT THIS TIME.
== END 2018-04-30 09:28 | DRG 683 ==
LOC: ER 19:36 → MS 22:24 → EDPENDDISTM 04-30 09:20 → EDPENDDISDT 04-30 09:20
PROVIDERS: ADMIT Internal Medicine; ATTEND Internal Medicine
DX: N17.0 Acute kidney failure with tubular necrosis (principal); E87.2 Acidosis; E11.22 Type 2 diabetes mellitus with diabetic chronic kidney disease; D69.6 Thrombocytopenia, unspecified; E87.5 Hyperkalemia; M62.82 Rhabdomyolysis; E86.0 Dehydration; G20 Parkinson's disease; F31.9 Bipolar disorder, unspecified; J44.9 Chronic obstructive pulmonary disease, unspecified; E78.00 Pure hypercholesterolemia, unspecified; E78.5 Hyperlipidemia, unspecified; E03.9 Hypothyroidism, unspecified; I12.9 Hypertensive chronic kidney disease with stage 1 through stage 4 chronic kidney disease, or unspecified chronic kidney disease; N18.9 Chronic kidney disease, unspecified; I25.10 Atherosclerotic heart disease of native coronary artery without angina pectoris; D63.8 Anemia in other chronic diseases classified elsewhere; Z88.2 Allergy status to sulfonamides; Z88.5 Allergy status to narcotic agent; Z79.4 Long term (current) use of insulin; Z79.899 Other long term (current) drug therapy; Z79.84 Long term (current) use of oral hypoglycemic drugs; Z79.82 Long term (current) use of aspirin; Z90.5 Acquired absence of kidney
CPT/HCPCS: 36415; 71045; 80048; 80053; 80061; 80164; 80178; 80307; 81000; 82550; 82553; 82607; 82746; 82803; 82948; 83036; 83880; 84443; 84484; 85025; 85610; 85730; 86140; 87040; 87086; 87186; 93005; 94640; 96374; 96375; 99285; J0696; J7030; J7050; J7613; C9399; J3490; J7060

== ENCOUNTER 2018-04-30 09:10 | Inpatient (IN) | payer OTHER, MEDICAID ==
[~2018-04-30] VITALS: Ht 167.6 cm; Wt 88.9 kg
[~2018-04-30 09:10] MED LIST changes: +AMLO2.5T2 PO; +ASPI-484 PO; +ATOR40TA PO; +BENZ1TAB5 PO; +CARB1TAB2 PO; +CYCL1DRO OP; +DESV50TA PO; +GLYB5TAB3 PO; +LEVO100T5 PO; +LISI10TA2 PO; +LORA-447 PO; +METO-236 PO; +OXYB10TA PO; +POLY17PO5 PO; +PREG50CA PO; +QUET300T5 PO; +QUET50TA5 PO; +ROPI1TAB PO; +TOPI50TA35 PO
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
[2018-04-30 10:36] VITALS: BP 126/76
[2018-04-30] MEDS ORDERED: COGENTIN PO SCH (12:00)
[2018-04-30] MEDS ORDERED: ULTRAM PO PRN ×2 (12:00)
[2018-04-30] MEDS: DIABETA PO SCH (12:00)
[2018-04-30] MEDS ORDERED: HUMULIN R SUBCUT PRN (12:00)
[2018-04-30] MEDS ORDERED: ARTIFICIAL TEARS BOTH EYES PRN (12:30)
[2018-04-30] MEDS ORDERED: HALDOL PO PRN (15:00)
[2018-04-30] MEDS: SINEMET 25/100 PO SCH ×2 (15:00→21:06)
[2018-04-30] MEDS ORDERED: ATIVAN IM PRN (15:00)
[2018-04-30] MEDS ORDERED: ATIVAN PO PRN (15:00)
[2018-04-30] MEDS: COLACE PO SCH ×2 (15:00→21:05)
[2018-04-30] MEDS ORDERED: HALDOL IM PRN (15:00)
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
[2018-04-30] MEDS: GLUCOPHAGE PO SCH (17:00)
[2018-04-30] MEDS: DITROPAN PO SCH (18:00)
[2018-04-30] MEDS: HUMULIN R SUBCUT PRN ×2 (18:08→21:14)
[2018-04-30 19:31] VITALS: BP 126/60
[2018-04-30] MEDS ORDERED: LANTUS SQ SCH (21:00)
[2018-04-30] MEDS ORDERED: SEROQUEL PO SCH ×2 (21:00)
[2018-04-30] MEDS: RESTASIS OP SCH (21:00)
[2018-04-30] MEDS: TOPAMAX PO SCH (21:05)
[2018-04-30] MEDS: SEROQUEL PO SCH (21:05)
[2018-04-30] MEDS: LYRICA PO SCH (21:06)
[2018-04-30] MEDS: REQUIP PO SCH (21:06)
[2018-04-30] MEDS: ATIVAN PO SCH (21:06)
[2018-04-30] MEDS: LIPITOR PO SCH (21:06)
[2018-04-30] MEDS: DESYREL PO SCH (21:06)
[2018-04-30] MEDS: MACROBID PO SCH (21:09)
--- NOTE | 2018-05-01 04:55 | NUR ---
PIRP: P: DTS, DTO,ALTERATION IN MOOD. I: MONITOR Q 15 MINUTES FOR SAFETY, PROVIDE SAFE AND SUPPORTIVE ENVIRONMENT EACH SHIFT.ENCOURAGE DAILY GROUP ATTENDANCE AND PARTICIPATION. PROVIDE MEDICATION ORDERED, PROVIDE QUIET ENVIRONMENT FOR SLEEP. PROVIDE MEDICATION ORDERED R: PT. IS MONITORED Q 15 MINUTES FOR SAFETY, PT. HAS A SAFE AND SUPPORTIVE ENVIRONMENT. PT. HAD A MEDICATION EDUCATION AND NUTRITION GROUP THIS SHIFT. PT. HAS SLEPT ALL NIGHT. PT. HAS TAKEN MEDS ORDERED. PT. HAS BEEN CALM AND COOPERATIVE. PT. DENIES ANY DEPRESSION, ANXIETY OR S/I. PT. IS ALERT AND ORIENTED X 3. PT. HAS HAD NO AGGRESSION THIS SHIFT. P: CONTINUE CURRENT [place] PLAN
[2018-05-01] MEDS: SYNTHROID PO SCH (06:16)
[2018-05-01] MEDS ORDERED: LANTUS SQ SCH (06:30)
[2018-05-01] MEDS ORDERED: MIRALAX ONE (07:57)
[2018-05-01] MEDS ORDERED: CELEXA ONE (07:57)
[2018-05-01] MEDS ORDERED: ZESTRIL ONE (07:57)
[2018-05-01] MEDS ORDERED: ASPIRIN ONE (07:58)
[2018-05-01] MEDS ORDERED: PROTONIX PO ONE (07:58)
[2018-05-01] MEDS ORDERED: TOPROL XL PO ONE (07:59)
[2018-05-01] MEDS: HUMULIN R SUBCUT PRN ×3 (08:09→17:20)
[2018-05-01] MEDS: MIRALAX PO SCH (09:00)
[2018-05-01] MEDS: RESTASIS OP SCH ×2 (09:00→20:22)
[2018-05-01 09:50] VITALS: BP 116/51
[2018-05-01] MEDS: PROTONIX PO SCH (09:53)
[2018-05-01] MEDS: ASPIRIN EC PO SCH (09:53)
[2018-05-01] MEDS: LYRICA PO SCH ×2 (09:54→20:20)
[2018-05-01] MEDS: GLUCOPHAGE PO SCH ×2 (09:54→17:19)
[2018-05-01] MEDS: COLACE PO SCH ×3 (09:54→20:20)
[2018-05-01] MEDS: TOPAMAX PO SCH ×2 (09:54→20:19)
[2018-05-01] MEDS: TOPROL XL PO SCH (09:54)
[2018-05-01] MEDS: CELEXA PO SCH (09:54)
[2018-05-01] MEDS: DITROPAN PO SCH (09:54)
[2018-05-01] MEDS: SINEMET 25/100 PO SCH ×3 (09:55→20:20)
[2018-05-01] MEDS: SEROQUEL PO SCH ×2 (09:55→20:20)
[2018-05-01] MEDS: ZESTRIL PO SCH (09:55)
[2018-05-01] MEDS: MACROBID PO SCH ×2 (09:55→20:20)
[2018-05-01] MEDS: ATIVAN PO SCH ×2 (09:56→20:20)
--- NOTE | 2018-05-01 10:00 | NUR ---
medication refusal pt refuses celexa. pt states "I want to talk to the doctor first." Reported to charge nurse
[2018-05-01] MEDS: DIABETA PO SCH (12:15)
[2018-05-01] MEDS: ULTRAM PO PRN (14:22)
--- NOTE | 2018-05-01 15:23 | NUR ---
VSEE Pt was seen by Dr. Wu via telemed. No new orders received @ this time, reinforced importance of medication compliance with pt.
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
[2018-05-01] MEDS: DESYREL PO SCH (20:19)
[2018-05-01] MEDS: LIPITOR PO SCH (20:19)
[2018-05-01] MEDS: REQUIP PO SCH (20:20)
[2018-05-01] MEDS: TYLENOL PO PRN (20:21)
[2018-05-01] MEDS: LANTUS SQ SCH (20:36)
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
[2018-05-01 21:08] VITALS: BP 101/55
--- NOTE | 2018-05-02 05:07 | NUR ---
PIRP P- ALTERED THOUGHT PROCESS AND DTS/DTO I- PROVIDE SAFE AND SUPPORTIVE ENVIRONMENT,Q 15 MIN. MONITORING,PROVIDE MEDICATION ORDERED. R- PT. WAS ORIENTED TIMES TWO.DENIES DEPRESSION BUT RATES ANXIETY 3. DENIES SI TONIGHT. ATTENDED GROUP,PARTICIPATED IN ACTIVITY,ATE SNACKS AND WAS HYPERVERBAL. TOOK MEDICATION ORDERED. MEDICATION EDUCATION WAS PROVIDED ON CELEXA AND PT. VOICED UNDERSTANDING.HAS NOT EXHIBITED DTO/DTS TONIGHT. PT. WAS ENCOURAGED TO WEAR YELLOW NON SKID SOCKS BUT SHE REFUSED. P- WILL CONTINUE WITH CURRENT [place]. PLAN.
[2018-05-02] MEDS: SYNTHROID PO SCH (06:15)
[2018-05-02 07:56] VITALS: BP 143/71
[2018-05-02] MEDS: RESTASIS OP SCH ×2 (09:00→20:33)
[2018-05-02] MEDS: GLUCOPHAGE PO SCH ×2 (09:27→16:54)
[2018-05-02] MEDS: MIRALAX PO SCH (09:27)
[2018-05-02] MEDS: ATIVAN PO SCH ×2 (09:29→20:32)
[2018-05-02] MEDS: CELEXA PO SCH (09:31)
[2018-05-02] MEDS: TYLENOL PO PRN (09:31)
[2018-05-02] MEDS: COLACE PO SCH ×3 (09:32→20:33)
[2018-05-02] MEDS: MACROBID PO SCH ×2 (09:32→20:33)
[2018-05-02] MEDS: DITROPAN PO SCH (09:33)
[2018-05-02] MEDS: ASPIRIN EC PO SCH (09:34)
[2018-05-02] MEDS: SINEMET 25/100 PO SCH ×3 (09:34→20:33)
[2018-05-02] MEDS: PROTONIX PO SCH (09:35)
[2018-05-02] MEDS: TOPAMAX PO SCH ×2 (09:36→20:33)
[2018-05-02] MEDS: TOPROL XL PO SCH (09:36)
[2018-05-02] MEDS: LYRICA PO SCH ×2 (09:37→20:32)
[2018-05-02] MEDS: SEROQUEL PO SCH ×2 (09:37→20:33)
[2018-05-02] MEDS: ZESTRIL PO SCH (09:39)
--- NOTE | 2018-05-02 12:30 | NUR ---
INSULIN NO SLIDE SCALE INSULIN GIVEN. PT DID NOT EAT LUNCH.
[2018-05-02] MEDS: DIABETA PO SCH (12:54)
--- NOTE | 2018-05-02 17:18 | NUR ---
PIRP P: Withdrawn, defiant I: Monitor for changes in usual behavior, q15 min monitoring, assess for psychotic symptoms, reinforce unit rules, provide safe and supportive environment, give clear and simple instructions, redirect with verbalization, teach medication compliance, alternate rest/activity, educate regarding group activities R: Pt has been withdrawn majority of shift. Refused breakfast, AM snack, and lunch. When staff encouraged pt to get OOB, pt would move legs and turn other way. Staff was able to get pt OOB and in shower before afternoon snack, pt was cooperative. Requires verbal redirection and reinforcement of appropriate behaviors. Denies depression, anxiety, SI/HI. Stated, "You guys are so nice here. I wish I could stay here forever. I even told the doctor I don't want to leave." Pt is alert and oriented to self, town, and month. No combative or threatening behaviors noted, exhibits no psychotic symptoms @ this time. Has taken medications as ordered, interacts appropriately when approached. P: Pt reports she will take medicine and "try to stay up" during the day.
[2018-05-02 19:00] VITALS: BP 96/52
--- NOTE | 2018-05-02 20:09 | CNH ---
DATE OF CONSULTATION: 05/01/2018 REFERRING PHYSICIAN: Dr. Wu with Psychiatry. REASON FOR CONSULTATION: Medical management of multiple medical problems. HISTORY OF PRESENT ILLNESS: Please refer to history and physical dictated by pr on 04/29/2018 for full details. The patient was initially admitted to medical floor. She was sent to the hospital for admission to the Geropsych Unit due to aggressive behavior. She was noted to be in renal failure, was admitted to medical floor. Over the next few days with hydration, her renal function did improve towards normal. She was cooperative. There were no complaints of pain or difficulty breathing. She has relatively poor functional status. PAST MEDICAL HISTORY: Per H and P dictated by pr on 04/29/2018. PAST SURGICAL HISTORY: Per H and P dictated by pr on 04/29/2018. ALLERGIES: Per H and P dictated by pr on 04/29/2018. HOME MEDICATIONS: Per H and P dictated by pr on 04/29/2018. SOCIAL HISTORY: Per H and P dictated by pr on 04/29/2018. FAMILY HISTORY: Per H and P dictated by pr on 04/29/2018. REVIEW OF SYSTEMS: CARDIAC: Denies chest pain or shortness of breath. PULMONARY: No cough, sputum production or pleuritic chest pain. GASTROINTESTINAL: No nausea, vomiting, diarrhea or constipation. All else negative in 10 point review of system except as in HPI. PHYSICAL EXAMINATION: VITAL SIGNS: Upon arrival to the [facility] Unit, height 167.6 cm, weight 88 kilograms, temperature 98.2, pulse 52, respiratory rate is 18, blood pressure 126/76, O2 saturation 94% on room air. GENERAL: She is alert, chronic ill-appearing lady. HEENT: Pupils equal, round, reactive to light. Sclerae are anicteric. Oropharynx is clear. Mucous membranes are moist. NECK: Supple. No lymphadenopathy. CARDIOVASCULAR: At time of exam is regular rate and rhythm. LUNGS: Clear bilaterally with shallow inspiratory effort. ABDOMEN: Soft, obese. Bowel sounds are present. EXTREMITIES: No cyanosis, clubbing or significant edema. NEUROLOGIC: Grossly nonfocal. LABORATORY DATA: Most recent workup shows normal CBC with WBC of 7.6 and hemoglobin 12.1. Her last renal function showed BUN of 12 with creatinine of 1.07 on the 3rd. ASSESSMENT AND PLAN: This patient is a 68-year-old woman with bipolar disorder with reported aggressive behavior, admitted with Parkinson's disease, coronary artery disease, chronic obstructive pulmonary disease, hypothyroidism, insulin-dependent diabetes, hyperlipidemia, hypertension and resolved acute renal failure. 1. We will continue Parkinson's medications. 2. Continue cardiovascular medications at current dose. 3. Appropriate p.r.n. pain and nausea medications. 4. We will start her on Lantus, also cover sliding scale insulin and ADA diet. Thank you very much for this consult. We will follow with you. Time spent on 05/01/2018 is 45 minutes. Molina Wei MD DR: FROY/lux JOB# [id number]
[2018-05-02] MEDS: LIPITOR PO SCH (20:32)
[2018-05-02] MEDS: REQUIP PO SCH (20:33)
[2018-05-02] MEDS: DESYREL PO SCH (20:33)
[2018-05-02] MEDS: LANTUS SQ SCH (20:48)
--- NOTE | 2018-05-03 04:45 | NUR ---
PIRP P- ALTERED THPUGHT PROCESS ,DTO.DTS I- PROVIDE SAFE AND SUPPORTIVE ENVIRONMENT,PROVIDE MEDICATION ORDERED,Q 15 MIN. MONITORING. R- PT. DENIED DEPRESSION AND RATED ANXIETY 5. ATTENDED GROUP,ATE SNACKS ,MEDICATION EDUCATION WAS PROVIDED AND PT. VOICED UNDERSTANDING.TOOK MEDICATION ORDERED. PT. STATED THERE WAS A PICTURE ON THE FLOOR IN FRONT OF HER THAT WENT TO A GAME,AN 8X10. THERE WAS NOTHING ON THE FLOOR. STAFF TOLD HER THERE WAS NOTHING ON THE FLOOR BUT SHE INSISTED THERE WAS AND STATED SHE WAS LOOKING AT IT AND KEPT FEELING OF THE FLOOR SAYING IT WAS THERE THAT SHE JUST COULDN'T PICK IT UP. PT. DID NOT EXHIBIT DTO OR DTS. DENIES HI/SI TONIGHT. P- WILL CONTINUE WITH CURRENT [place]. PLAN.
[2018-05-03] MEDS: SYNTHROID PO SCH ×2 (06:25→06:30)
[2018-05-03 07:41] VITALS: BP 136/67
[2018-05-03] MEDS: RESTASIS OP SCH ×2 (09:00→20:36)
[2018-05-03] MEDS: ZESTRIL PO SCH (10:00)
[2018-05-03] MEDS: ATIVAN PO SCH ×2 (10:20→20:34)
[2018-05-03] MEDS: MACROBID PO SCH ×2 (10:20→20:35)
[2018-05-03] MEDS: CELEXA PO SCH (10:20)
[2018-05-03] MEDS: GLUCOPHAGE PO SCH ×2 (10:20→16:49)
[2018-05-03] MEDS: ASPIRIN EC PO SCH (10:20)
[2018-05-03] MEDS: LYRICA PO SCH ×2 (10:20→20:34)
[2018-05-03] MEDS: PROTONIX PO SCH (10:21)
[2018-05-03] MEDS: SEROQUEL PO SCH ×2 (10:21→20:34)
[2018-05-03] MEDS: SINEMET 25/100 PO SCH ×3 (10:21→20:34)
[2018-05-03] MEDS: MIRALAX PO SCH (10:21)
[2018-05-03] MEDS: TOPROL XL PO SCH (10:21)
[2018-05-03] MEDS: TOPAMAX PO SCH ×2 (10:21→20:35)
[2018-05-03] MEDS ORDERED: ZESTRIL ONE (10:21)
[2018-05-03] MEDS: COLACE PO SCH ×3 (10:21→20:34)
[2018-05-03] MEDS: DITROPAN PO SCH (10:22)
[2018-05-03] MEDS: DIABETA PO SCH (12:07)
[2018-05-03] MEDS: HUMULIN R SUBCUT PRN ×2 (12:12→20:54)
--- NOTE | 2018-05-03 18:01 | NUR ---
PIRP: P: ALTERED THOUGHT PROCESS, DTS, DTO I: provide medications as ordered by physician. Encourage attendance and participation of all groups. Allow patient to voice feelings and concerns. Assist patient in differentiating between internal and external reality. Monitor patient's behavior for changes that may put others or herself at risk of injury. R: Patient has taken all medications this shift. She has been calm and cooperative, but at times demanding and attention seeking. She has poor self control and has child like behavior. She has NOT been combative physically or verbally this shift. Patient requires strict boundaries with rules. She remains paranoid. She has participated in groups. P: Continue current plan of care. Patient was seen by Dr. Wu via telemed today and Seroquel was changed to 150mg po daily and 200 mg at HS.
[2018-05-03 19:10] VITALS: BP 114/56
[2018-05-03] MEDS: REQUIP PO SCH (20:34)
[2018-05-03] MEDS: LIPITOR PO SCH (20:34)
[2018-05-03] MEDS: DESYREL PO SCH (20:34)
[2018-05-03] MEDS: LANTUS SQ SCH (20:53)
--- NOTE | 2018-05-04 05:05 | PNH ---
DATE: 05/03/2018 PSYCHIATRIC PROGRESS NOTE TIME: 9:00-9:30. HISTORY OF PRESENT ILLNESS: The patient is a very complicated, elderly female with an extensive history of bipolar disorder type 1, presenting on this occasion with bipolar disorder, depressed, psychotic with suicidal intent, holding a knife to her throat in the detention to kill herself. The patient with depressive symptoms with depressed mood, disturbed sleep, appetite, energy and concentration. The patient is having auditory hallucinations at this time, some grandiosity. No overt manic symptoms specifically, no racing thoughts, no excess energy, no periods of euphoria, no pressured speech. Medication changes have been made today. This patient is being observed closely for any harm to herself or anyone else. She is a candidate for ongoing hospitalization. OBJECTIVE: VITAL SIGNS: Blood pressure 136/67, pulse 90, respirations 18, temperature 98.6, oxygen saturation 97%. REVIEW OF SYSTEMS: HEENT: Normal. RESPIRATORY: No shortness of breath, coughing, or wheezing. CARDIAC: No chest pain or palpitations. GASTROINTESTINAL: No nausea, vomiting, diarrhea or constipation. GENITOURINARY: No difficulty with urination. EXTREMITIES: No swelling or edema. Bilateral decreased lower extremity strength. NEUROLOGIC: Normal. ENDOCRINE: Normal. MENTAL STATUS EXAMINATION: Reveals an alert female, severely decreased psychomotor activity. Concentration and memory intact. Speech and language are normal. Orientation full. Intelligence is average. Mood depressed. Affect constricted. Insight and judgment are poor. Thought is illogical, positive hallucinations. ASSESSMENT AND PLAN: DIAGNOSES: AXIS I: Bipolar disorder, depressed, psychotic. AXIS II: Deferred. AXIS III: Refer to past medical history. TREATMENT AND PLAN: 1. This patient was admitted involuntarily to [facility] and is being observed closely. 2. She has been placed on medications, specifically Seroquel increased today to 150 mg in the morning and 200 mg at bedtime, Celexa 20 mg a day, trazodone 100 mg at bedtime and Ativan 0.5 mg twice a day. 3. She is participating in groups, therapies and activities. 4. The patient will be discharged back to the detention, when it is felt she represents no risk or danger to herself or others. Stephan Wu MD DR: JASWANT/lux JOB# [id number]
[2018-05-04] MEDS: SYNTHROID PO SCH (06:09)
--- NOTE | 2018-05-04 06:19 | NUR ---
PIRP- P-ALTERED THOUGHT PROCESS,DTO,DTS I- PROVIDE MEDICATION ORDERED,Q 15 MIN. MONITORING,PROVIDE SAFE AND SUPPORTIVE ENVIRONMENT AND PROVIDE 1:1 INTERVENTION ALLOWING PT. TO EXPRESS THOUGHTS AND FEELINGS. R-PT. WAS ORIENTED TIMES THREE. PT. PHONED HER SON BUT THERE WAS NO ANSWER SO SHE LEFT MESSAGE THEN SHE WENT TO HER ROOM AND SAT LOOKING OUT THE WINDOW. ATTENDED GROUP AND ATE SNACKS. AT TIMES PT. IS INTRUSIVE. TOOK MEDICATION ORDERED. MEDICATION EDUCATION PROVIDED. HAS NOT EXHIBITED DTO/DTS THIS SHIFT. HAS RESTED IN BED WITH EYES CLOSED FOR 6.25 HOURS OF THIS TIME TONIGHT. P- WILL CONTINUE WITH CURRENT [place]. PLAN.
[2018-05-04] MEDS: RESTASIS OP SCH ×2 (09:00→20:43)
[2018-05-04] MEDS: SINEMET 25/100 PO SCH ×3 (09:00→20:47)
[2018-05-04] MEDS: TOPROL XL PO SCH (09:00)
[2018-05-04] MEDS: ZESTRIL PO SCH (09:00)
[2018-05-04] MEDS: COLACE PO SCH ×3 (09:00→20:48)
--- NOTE | 2018-05-04 09:35 | NUR ---
medication This nurse has made several attempts to wake pt. Pt refuses to get out of bed at this time.
[2018-05-04 12:34] VITALS: BP 134/75
[2018-05-04] MEDS: ATIVAN PO SCH ×2 (12:40→20:48)
[2018-05-04] MEDS: MIRALAX PO SCH (12:40)
[2018-05-04] MEDS: DIABETA PO SCH (12:40)
[2018-05-04] MEDS: ASPIRIN EC PO SCH (12:40)
[2018-05-04] MEDS: PROTONIX PO SCH (12:40)
[2018-05-04] MEDS: DITROPAN PO SCH (12:40)
[2018-05-04] MEDS ORDERED: ZESTRIL ONE (12:40)
[2018-05-04] MEDS: SEROQUEL PO SCH ×2 (12:41→20:48)
[2018-05-04] MEDS: MACROBID PO SCH ×2 (12:41→20:48)
[2018-05-04] MEDS: LYRICA PO SCH ×2 (12:41→20:48)
[2018-05-04] MEDS: TOPAMAX PO SCH ×2 (12:41→20:48)
[2018-05-04] MEDS: NICOTINE 21MG PATCH TD SCH (12:41)
[2018-05-04] MEDS: GLUCOPHAGE PO SCH ×2 (12:41→16:52)
[2018-05-04] MEDS: CELEXA PO SCH (12:41)
[2018-05-04] MEDS: HUMULIN R SUBCUT PRN ×2 (12:42→16:54)
--- NOTE | 2018-05-04 12:51 | NUR ---
metoprolol held apical heart rate 52. medication held
[2018-05-04] MEDS: ULTRAM PO PRN (13:43)
--- NOTE | 2018-05-04 16:44 | NUR ---
PIRP: P: altered thought process I: Provide medications as ordered by physician. Encourage attendance and participation of all groups. Allow patient to voice feelings and concerns. Assist patient in differentiating between internal and external reality. Provide groups that require focus and concentration R: Patient has taken all medications as ordered. She slept in today refusing to get up until 1130 and was incontinent with urine. She would not allow staf to assist her with changing clothing and later gave self a shower and shaved. She has participated in OT group and has been calm and cooperative pleasant. She has not been suicidal or combative. P: Continue current plan of care.
[2018-05-04 19:16] VITALS: BP 94/64
[2018-05-04] MEDS ORDERED: TOPAMAX ONE (20:44)
[2018-05-04] MEDS: REQUIP PO SCH (20:47)
[2018-05-04] MEDS: DESYREL PO SCH (20:48)
[2018-05-04] MEDS: LIPITOR PO SCH (20:49)
[2018-05-04] MEDS: LANTUS SQ SCH (20:54)
[2018-05-04 21:30] VITALS: BP 138/68
--- NOTE | 2018-05-05 05:47 | NUR ---
PIRP P DTS,DTO, Alteration in Mood I Medication to be given as prescribed by Dr, Discourage self harm behaviors. Monitor patient every 15 minutes for safety. Encourage sleep. Patient to cope with anger and stress positively. Group attendance to be stressed to patient. R Patient has taken medications as directed. Patient has not displayed any self harm behaviors. Patient has been monitored every 15 minutes for safety. Patient has slept 7.25 hours so far. Patient has not displayed any anger . Patient did sit and color a picture. P Continue plan of care
[2018-05-05] MEDS: SYNTHROID PO SCH (06:21)
[2018-05-05 08:00] VITALS: BP 117/58
[2018-05-05] MEDS ORDERED: ZESTRIL ONE (08:37)
[2018-05-05] MEDS: CELEXA PO SCH (08:39)
[2018-05-05] MEDS: SINEMET 25/100 PO SCH ×3 (08:39→21:27)
[2018-05-05] MEDS: NICOTINE 21MG PATCH TD SCH (08:39)
[2018-05-05] MEDS: ATIVAN PO SCH ×2 (08:39→21:28)
[2018-05-05] MEDS: ASPIRIN EC PO SCH (08:39)
[2018-05-05] MEDS: LYRICA PO SCH ×2 (08:39→21:28)
[2018-05-05] MEDS: SEROQUEL PO SCH ×2 (08:40→21:27)
[2018-05-05] MEDS: MACROBID PO SCH ×2 (08:40→21:27)
[2018-05-05] MEDS: PROTONIX PO SCH (08:40)
[2018-05-05] MEDS: TOPAMAX PO SCH ×2 (08:40→21:28)
[2018-05-05] MEDS: DITROPAN PO SCH (08:40)
[2018-05-05] MEDS: COLACE PO SCH ×3 (08:40→21:28)
[2018-05-05] MEDS: MIRALAX PO SCH (08:40)
[2018-05-05] MEDS: GLUCOPHAGE PO SCH ×2 (08:40→17:03)
[2018-05-05] MEDS: ZESTRIL PO SCH (08:41)
[2018-05-05] MEDS: TOPROL XL PO SCH (08:41)
[2018-05-05] MEDS: RESTASIS OP SCH ×2 (08:42→21:00)
--- NOTE | 2018-05-05 09:05 | NUR ---
VSEE Pt was seen by Dr. Wu via telemedicine. No new orders received @ this time.
[2018-05-05] MEDS: HUMULIN R SUBCUT PRN (12:16)
[2018-05-05] MEDS: DIABETA PO SCH (12:16)
--- NOTE | 2018-05-05 12:54 | PNH ---
DATE: 05/05/2018 PSYCHIATRIC PROGRESS NOTE TIME: 8:20-8:40. HISTORY OF PRESENT ILLNESS: The patient is an elderly female with a very long history of bipolar disorder type 1, severe admitted on this occasion from the group home with bipolar disorder, depression with psychosis. The patient's mood is depressed. Affect is constricted. Positive anhedonia, poor sleep, appetite, energy and concentration. She did put a knife to her throat in the group home, threatening to kill herself. She does not evidence symptoms of antoinette. No racing thoughts. No euphoria no impulsivity. No grandiosity.. Psychotic symptoms were present. She is having some auditory hallucinations. The patient remains quite symptomatic at this time, represents a risk or danger to herself and therefore is a candidate for ongoing hospitalization. OBJECTIVE: VITAL SIGNS: Temperature 98.6, pulse 60, respirations 16, oxygen saturation 97%, blood pressure 117/58. REVIEW OF SYSTEMS: HEENT: Normal. RESPIRATORY: No shortness of breath, coughing, or wheezing. CARDIAC: No chest pain or palpitations. GASTROINTESTINAL: No nausea, vomiting, diarrhea or constipation. GENITOURINARY: No difficulty with urination. EXTREMITIES: Bilateral lower extremity weakness. MUSCULOSKELETAL: No muscle pain. NEUROLOGIC: Normal. ENDOCRINE: Normal. MENTAL STATUS EXAMINATION: Reveals an alert female with decreased psychomotor activity. Concentration and memory intact. Speech and language are normal. Orientation full. Intelligence is average. Mood assessed as severely depressed. Affect constricted. Insight and judgment are poor with suicidal ideation. ASSESSMENT AND PLAN: DIAGNOSES: AXIS I: Bipolar disorder type 1, depressed, psychotic. AXIS II: Deferred. AXIS III: Refer to past medical history. TREATMENT PLAN: 1. This patient was admitted to the [facility] and was placed on medications, specifically Seroquel, which was initiated at 150 mg twice a day, trazodone 100 mg at bedtime, Ativan 0.5 mg twice a day and Celexa 20 mg a day. 2. The patient is participating in groups, therapies and activities. 3. The patient will be sent back to the group home when it is felt she represents no risk or danger to herself or others. Stephan Wu MD DR: JASWANT/lux JOB# [id number]
--- NOTE | 2018-05-05 16:54 | NUR ---
PIRP P: Altered thought process I: q15 min monitoring, monitor for changes in usual behavior, give clear and simple instructions, alternate rest/activity, redirect with verbalization, provide 1:1 to encourage expression of feelings, provide task-oriented activities, give medications as ordered R: Pt has had pleasant, cooperative affect throughout shift. Intrusive @ times but is able to be redirected with verbalization. Denies depression, anxiety, SI/HI. Continues to reports she "never" had plans to hurt herself @ facility where she came from. Participates in some group activities with encouragement, takes medications as ordered. P: Pt reports states, "I wish I could live here. Y'all are so sweet to me."
[2018-05-05 20:17] VITALS: BP 118/56
[2018-05-05] MEDS: LANTUS SQ SCH (21:00)
[2018-05-05] MEDS: LIPITOR PO SCH (21:26)
[2018-05-05] MEDS: DESYREL PO SCH (21:27)
[2018-05-05] MEDS: REQUIP PO SCH (21:28)
--- NOTE | 2018-05-06 05:42 | NUR ---
PIRP P DTS,DTO< Alteration in Mood I Medication compliance to be enforced. Patient will not exhibit self harm behaviors. Monitor every 15 minutes for safety. Allow patient to verbalize thought feelings. Patient will cope with stress more effectively. R Patient has been medication compliance. Patient has not displayed any self harm this pm. Patient denied wanting to harm herself or anyone else at this time. Patient has been monitored for safety every 15 minutes. Patient verbalized about her family members selling her grandmothers house in [place] where she wanted to go live. She is upset that she didnt get anything when the house was sold and her grandmother shortly after she was put in half-way. Patient has been pleasant and cooperative. No outbursts or bad behavior this evening. P Continue plan of care.
[2018-05-06] MEDS: SYNTHROID PO SCH (06:04)
[2018-05-06 07:26] VITALS: BP 98/57
[2018-05-06] MEDS: ZESTRIL PO SCH ×2 (09:00→10:30)
[2018-05-06] MEDS: RESTASIS OP SCH ×2 (09:00→20:33)
[2018-05-06] MEDS: ATIVAN PO SCH ×2 (10:26→20:33)
[2018-05-06] MEDS: MIRALAX PO SCH (10:26)
[2018-05-06] MEDS: LYRICA PO SCH ×2 (10:27→20:32)
[2018-05-06] MEDS: SEROQUEL PO SCH ×2 (10:27→20:33)
[2018-05-06] MEDS: COLACE PO SCH ×3 (10:27→20:33)
[2018-05-06] MEDS: SINEMET 25/100 PO SCH ×3 (10:28→20:32)
[2018-05-06] MEDS: CELEXA PO SCH ×2 (10:31→10:33)
[2018-05-06] MEDS: ASPIRIN EC PO SCH (10:31)
[2018-05-06] MEDS: TOPAMAX PO SCH ×2 (10:31→20:33)
[2018-05-06] MEDS: PROTONIX PO SCH ×2 (10:31→10:33)
[2018-05-06] MEDS: NICOTINE 21MG PATCH TD SCH (10:31)
[2018-05-06] MEDS: DITROPAN PO SCH (10:31)
[2018-05-06] MEDS: TOPROL XL PO SCH (10:31)
[2018-05-06] MEDS: GLUCOPHAGE PO SCH ×2 (10:34→17:22)
[2018-05-06] MEDS ORDERED: ZESTRIL ONE (10:37)
[2018-05-06] MEDS: HUMULIN R SUBCUT PRN ×2 (12:02→17:25)
[2018-05-06] MEDS: DIABETA PO SCH (12:03)
--- NOTE | 2018-05-06 17:23 | NUR ---
PIRP P: Altered thought process I: Monitor for changes in usual behavior, give clear and simple instructions, assess for delusional thoughts, q15 min monitoring, provide education regarding appropriate behaviors, provide positive feed-back, teach regarding psychiatric inpatient hospitalization, reinforce unit rules, alternate rest/activity, give medications as ordered R: Pt has had flat affect majority of shift, pleasant when approached. Pt @ times is intrusive, but is able to be redirected with verbalization. Denies depression, anxiety, SI/HI. States, "I don't want to go back to the longterm." When pt was provided with information regarding discharge, pt stated, "I guess I'm just gonna have to act out again so I can stay." Pt was informed that that was not appropriate, pt then stated, "I know. But I don't want to leave here." Takes medications as ordered, participates in some group activities. P: Pt does not voice plan, continues to voice wishes to stay in facility.
[2018-05-06 19:30] VITALS: BP 104/63
[2018-05-06 20:24] VITALS: BP 101/63
[2018-05-06] MEDS ORDERED: COLACE PO ONE (20:29)
[2018-05-06] MEDS: LIPITOR PO SCH (20:33)
[2018-05-06] MEDS: DESYREL PO SCH (20:33)
[2018-05-06] MEDS: REQUIP PO SCH (20:33)
[2018-05-06] MEDS: LANTUS SQ SCH (20:36)
--- NOTE | 2018-05-07 05:42 | NUR ---
PIRP P DTS. DTO. Alteration in Mood I Patient to take meds as per Drs orders. Patient will not display any self harming behaviors. Patient to be allowed to verbalize thought and feelings. Observe 15 minute checks for safety. Encourage sleep R Patient has been medication compliant and has not displayed any self harming behaviors. Patient did not make any statements to myself but told day nurse that she would act out because she wanted to stay here and not return to current [facility]. Patient has been observed every 15 minutes. Patient has slept 6 hours at least. P Continue plan of care.
[2018-05-07] MEDS: SYNTHROID PO SCH (06:13)
[2018-05-07] MEDS: HUMULIN R SUBCUT PRN ×4 (08:30→20:43)
[2018-05-07 08:57] VITALS: BP 136/70
[2018-05-07] MEDS: LYRICA PO SCH ×2 (08:59→20:32)
[2018-05-07] MEDS: MIRALAX PO SCH (08:59)
[2018-05-07] MEDS: RESTASIS OP SCH ×2 (09:00→20:33)
[2018-05-07] MEDS: TOPROL XL PO SCH (09:00)
[2018-05-07] MEDS: ATIVAN PO SCH ×2 (09:00→20:32)
[2018-05-07] MEDS: SEROQUEL PO SCH ×2 (09:00→20:32)
[2018-05-07] MEDS: ASPIRIN EC PO SCH (09:00)
[2018-05-07] MEDS: ZESTRIL PO SCH (09:00)
[2018-05-07] MEDS: SINEMET 25/100 PO SCH ×3 (09:00→20:32)
[2018-05-07] MEDS: NICOTINE 21MG PATCH TD SCH (09:00)
[2018-05-07] MEDS: TOPAMAX PO SCH ×2 (09:01→20:32)
[2018-05-07] MEDS: CELEXA PO SCH (09:01)
[2018-05-07] MEDS: DITROPAN PO SCH (09:01)
[2018-05-07] MEDS: GLUCOPHAGE PO SCH ×2 (09:01→17:07)
[2018-05-07] MEDS: COLACE PO SCH ×3 (09:02→20:32)
[2018-05-07] MEDS: TYLENOL PO PRN (11:53)
[2018-05-07] MEDS: DIABETA PO SCH (12:23)
--- NOTE | 2018-05-07 15:34 | NUR ---
PIRP P: Altered thought process I: q15 min monitoring, monitor for changes in usual behavior, provide task-oriented activities, give medications as ordered, set clear and appropriate boundaries, assess for delusional thoughts, give clear and simple instructions, provide reality orientation, provide provide safe and supportive environment R: Pt has had flat affect throughout shift. Pleasant when approached, cooperative with tx plan and takes medications as ordered. Pt is defiant @ times, but is able to be redirected with verbalization. Continues to report that she put knife to throat because she wanted to come to this facility, also reports she wants to go home in [place]. Patient has been provided with education regarding discharge planning and reality orientation. Denies depression, anxiety, SI/HI. Interacts appropriately with staff, intrusive @ times with peers. No combative or threatening behaviors exhibited. P: Pt states that she wants to stay in psych facility or go home in [place].
[2018-05-07 20:00] VITALS: BP 98/56
[2018-05-07] MEDS: DESYREL PO SCH (20:32)
[2018-05-07] MEDS: LIPITOR PO SCH (20:32)
[2018-05-07] MEDS: REQUIP PO SCH (20:32)
[2018-05-07] MEDS: LANTUS SQ SCH (20:42)
--- NOTE | 2018-05-08 02:59 | NUR ---
PIRP- P- ALTERED THOUGHT PROCESS I- PROVIDE MEDICATION ORDERED,PROVIDE SAFE AND SUPPORTIVE ENVIRONMENT ,Q 15 MIN. MONITORING. PROVIDE MEDICATION EDUCATION. R- PT. WAS ORIENTED TIMES THREE. DENIES DEPRESSION AND ANXIETY. ATTENDED GROUP AND PARTICIPATED IN EXERCISES . ATE SNACK. QUIET AND DID NOT INITIATE INTERACTION. MEDICATION EDUCATION PROVIDED ON LISINOPRIL AND PT. VOICED UNDERSTANDING. TOOK MEDICATION ORDERED. PT. HAS BEEN INCONTINENT OF URINE TIMES ONE TONIGHT. HAS RESTED IN BED WITH EYES CLOSED FOR 5.25 HOURS OF THIS TIME TONIGHT. P- WILL CONTINUE WITH CURRENT TX. PLAN.
[2018-05-08] MEDS: SYNTHROID PO SCH (06:22)
[2018-05-08 08:08] VITALS: BP 138/74
[2018-05-08] MEDS: RESTASIS OP SCH ×2 (09:00→20:34)
[2018-05-08] MEDS: GLUCOPHAGE PO SCH ×2 (09:09→17:00)
[2018-05-08] MEDS: NICOTINE 21MG PATCH TD SCH (09:09)
[2018-05-08] MEDS: ZESTRIL PO SCH (09:10)
[2018-05-08] MEDS: COLACE PO SCH ×3 (09:10→20:37)
[2018-05-08] MEDS: SINEMET 25/100 PO SCH ×3 (09:10→20:37)
[2018-05-08] MEDS: DITROPAN PO SCH (09:10)
[2018-05-08] MEDS: TOPROL XL PO SCH (09:10)
[2018-05-08] MEDS: ASPIRIN EC PO SCH (09:10)
[2018-05-08] MEDS: ATIVAN PO SCH ×2 (09:11→20:37)
[2018-05-08] MEDS: LYRICA PO SCH ×2 (09:11→20:37)
[2018-05-08] MEDS: MIRALAX PO SCH (09:11)
[2018-05-08] MEDS: CELEXA PO SCH (09:11)
[2018-05-08] MEDS: PROTONIX PO SCH (09:11)
[2018-05-08] MEDS: TOPAMAX PO SCH ×2 (09:11→20:38)
[2018-05-08] MEDS: SEROQUEL PO SCH ×2 (09:11→20:37)
[2018-05-08] MEDS: DIABETA PO SCH (13:01)
--- NOTE | 2018-05-08 16:11 | NUR ---
PIRP: P: ALTERED MOOD I: Provide medications as ordered by physician. Encourage attendance and participation of all groups. Allow patient to voice feelings and concerns. Encourage attendance and participation of all groups. Provide groups that require focus and concentration. Allow patient to voice feelings and concerns. Monitor patients behavior for changes that may put patient at risk of injuring self. R: Patient has been calm and cooperative and pleasant. Patient has taken all medications as ordered. She denies suicidal ideation. Participates in groups. P: Continue current plan of care. Dr. Wu saw patient today and change Seroquel 200 mg po BID.
[2018-05-08 19:25] VITALS: BP 128/66
[2018-05-08] MEDS: LIPITOR PO SCH (20:37)
[2018-05-08] MEDS: REQUIP PO SCH (20:38)
[2018-05-08] MEDS: DESYREL PO SCH (20:39)
[2018-05-08] MEDS: LANTUS SQ SCH (20:51)
--- NOTE | 2018-05-09 00:56 | PNH ---
DATE: 05/08/2018 HISTORY OF PRESENT ILLNESS: The patient is an elderly female treated for many years for diagnosis of bipolar disorder quite fragile. She was admitted on this occasion with bipolar disorder, depressed, psychotic with depressed mood, disturbed sleep, appetite, energy and concentration, feelings of hopelessness, helplessness, worthlessness. Put a knife to her throat threatening to kill herself. She is acting out somewhat with manipulative behaviors; however, she does remain quite depressed. She has had significant manic episodes in the past and been hospitalized for those as well. The patient remains a candidate for ongoing hospitalization at this time. OBJECTIVE: VITAL SIGNS: Blood pressure 138/74, pulse 72, respirations 18, temperature 98, oxygen saturation 93%. REVIEW OF SYSTEMS: HEENT: Normal. RESPIRATORY: No shortness of breath, coughing, or wheezing. CARDIAC: No chest pain or palpitations. GASTROINTESTINAL: No nausea, vomiting, diarrhea or constipation. GENITOURINARY: No difficulty with urination. EXTREMITIES: No swelling or edema bilateral lower extremity weakness. MUSCULOSKELETAL: No muscle pain. NEUROLOGIC: Normal. ENDOCRINE: Normal. MENTAL STATUS EXAMINATION: Reveals an alert female, severely decreased psychomotor activity, concentration and memory intact. Speech and language are normal. Orientation is full. Intelligence is average. Mood is severely depressed. Affect constricted. Insight and judgment are poor with suicidal behavior as outlined above. DIAGNOSES: AXIS I: Bipolar disorder, depressed, psychotic. She does have some delusional thought and paranoia, feeling people want to hurt or harm her. AXIS II: Deferred. AXIS III: Refer to past medical history. TREATMENT PLAN: 1. This patient was admitted to the [facility] involuntarily representing a danger or risk to herself. 2. She is being observed closely. 3. She was placed on medications, specifically Celexa 20 mg, Ativan 0.5 mg twice a day, Seroquel increased today to 200 mg twice a day and trazodone 100 mg at bedtime. 4. The patient is participating in groups, therapies and activities. 5. The patient will be discharged to an outpatient or group home setting when it is felt she no longer represents any risk or danger to herself. Stephan Wu MD DR: JASWANT/lux JOB# [id number]
--- NOTE | 2018-05-09 03:00 | NUR ---
PIRP- P- ALTERATION IN MOOD I- PROVIDE MEDICATION ORDERED,Q 15 MIN. MONITORING,PROVIDE SAFE AND SUPPORTIVE ENVIRONMENT. PROVIDE 1:1 INTERVENTION ALLOWING PT. TO EXPRESS THOUGHTS AND FEELINGS. R-PT. ORIENTED TIMES THREE. DENIES DEPRESSION AND ANXIETY. ATTENDED GROUP,ATE SNACKS. QUIET BUT RESPONDS TO APPROACH. PARTICIPATED IN GROUP ACTIVITIES. MEDICATION EDUCATION PROVIDED AND PT. TOOK MEDICATION ORDERED. CALM AND COOPERATIVE. P- WILL CONTINUE WITH CURRENT TX. PLAN.
[2018-05-09] MEDS: SYNTHROID PO SCH (06:15)
[2018-05-09 07:38] VITALS: BP 117/51
[2018-05-09] MEDS: HUMULIN R SUBCUT PRN ×2 (08:11→12:02)
[2018-05-09] MEDS: MIRALAX PO SCH (08:50)
[2018-05-09] MEDS: LYRICA PO SCH ×2 (08:51→20:44)
[2018-05-09] MEDS: TOPROL XL PO SCH (08:51)
[2018-05-09] MEDS: GLUCOPHAGE PO SCH ×2 (08:51→16:29)
[2018-05-09] MEDS: SEROQUEL PO SCH ×2 (08:51→20:44)
[2018-05-09] MEDS: NICOTINE 21MG PATCH TD SCH (08:51)
[2018-05-09] MEDS: ZESTRIL PO SCH (08:51)
[2018-05-09] MEDS: CELEXA PO SCH (08:52)
[2018-05-09] MEDS: DITROPAN PO SCH (08:52)
[2018-05-09] MEDS: TOPAMAX PO SCH ×2 (08:52→20:44)
[2018-05-09] MEDS: ASPIRIN EC PO SCH (08:52)
[2018-05-09] MEDS: ATIVAN PO SCH ×2 (08:52→20:44)
[2018-05-09] MEDS: PROTONIX PO SCH (08:52)
[2018-05-09] MEDS: SINEMET 25/100 PO SCH ×3 (08:52→20:44)
[2018-05-09] MEDS: COLACE PO SCH ×3 (08:52→20:44)
[2018-05-09] MEDS: RESTASIS OP SCH ×2 (08:53→20:46)
[2018-05-09] MEDS: TYLENOL PO PRN ×2 (08:53→20:45)
[2018-05-09] MEDS: DIABETA PO SCH (12:06)
--- NOTE | 2018-05-09 16:30 | NUR ---
PIRP: P: ALTERED THOUGHT PROCESS, DTS I: Provide medications as ordered by physician. Encourage attendance and participation of all groups. Provide groups that require focus and concentration. Assist patient in differentiating between internal and external reality. Allow patient to voice feeling and concerns. Provide groups that require focus and concentration. R: Patient has been calm and cooperative. She has participated in groups. She denies suicidal ideation. P: Continue current plan of care
[2018-05-09 20:00] VITALS: BP 129/78
[2018-05-09] MEDS: REQUIP PO SCH (20:43)
[2018-05-09] MEDS: DESYREL PO SCH (20:44)
[2018-05-09] MEDS: LIPITOR PO SCH (20:44)
[2018-05-09] MEDS: LANTUS SQ SCH (20:55)
--- NOTE | 2018-05-10 05:37 | NUR ---
PIRP P DTS, DTO. Alteration in mood I Medication compliance to be encouraged. Decrease self harm behaviors. Monitor patient every 15 minutes for safety. Allow patient to verbalize about anger and stress issues. Encourage sleep at night so she will be awake during the day. R Patient has been medication compliant. Patient has not displayed any self harming behaviors. patient has been monitored every 15 minutes for safety. Patient encouraged to verbalize stress and anger issues. Patient did sleep 5.45 hours so far. Patient stayed up watching a movie but did go to bed when asked. P Continue plan of care.
[2018-05-10] MEDS: SYNTHROID PO SCH (05:48)
[2018-05-10 07:45] VITALS: BP 134/61
[2018-05-10] MEDS: COLACE PO SCH ×3 (08:37→20:43)
[2018-05-10] MEDS: MIRALAX PO SCH (08:37)
[2018-05-10] MEDS: NICOTINE 21MG PATCH TD SCH (08:37)
[2018-05-10] MEDS: SEROQUEL PO SCH ×2 (08:38→21:03)
[2018-05-10] MEDS: PROTONIX PO SCH (08:38)
[2018-05-10] MEDS: GLUCOPHAGE PO SCH ×2 (08:38→17:02)
[2018-05-10] MEDS: ZESTRIL PO SCH (08:38)
[2018-05-10] MEDS: LYRICA PO SCH ×2 (08:38→20:43)
[2018-05-10] MEDS: SINEMET 25/100 PO SCH ×3 (08:38→20:43)
[2018-05-10] MEDS: ASPIRIN EC PO SCH (08:38)
[2018-05-10] MEDS: TOPAMAX PO SCH ×2 (08:38→20:44)
[2018-05-10] MEDS: TOPROL XL PO SCH (08:38)
[2018-05-10] MEDS: ATIVAN PO SCH ×2 (08:38→20:43)
[2018-05-10] MEDS: CELEXA PO SCH (08:38)
[2018-05-10] MEDS: RESTASIS OP SCH ×2 (08:39→21:00)
[2018-05-10] MEDS: DITROPAN PO SCH (08:39)
--- NOTE | 2018-05-10 09:29 | NUR ---
Tx team Pt was seen by Dr. Wu and tx team. No new orders received @ this time. Pt reports wanting to go to [facility] in [place], [place]. Plans for pt to discharge by Tuesday once and if accepted to facility.
--- NOTE | 2018-05-10 11:55 | PNH ---
DATE: 05/10/2018 PSYCHIATRIC PROGRESS NOTE TIME: 9:20-9:40. HISTORY OF PRESENT ILLNESS: The patient is an elderly female with a very long history of bipolar disorder, having had manic episodes and depressive episodes in the past. She presented on this occasion with depression severe, depressed mood, disturbed sleep, appetite, energy, concentration, hopelessness, helplessness, and worthlessness. No manic symptoms on this occasion. No racing thoughts. No periods of excess energy. No euphoria, no impulsivity. No distractibility. She was hearing voices with active hallucinations. The patient at this point has had medication changes and is involved in therapies and is showing improvement. It is unlikely that she continues to improve with the medication changes that have been made and she will be able to be discharged within the next day or two. OBJECTIVE: VITAL SIGNS: Temperature 98.4, pulse 71, respirations 16, oxygen saturation 91%, blood pressure 134/61. REVIEW OF SYSTEMS: HEENT: Normal. RESPIRATORY: No shortness of breath, coughing, or wheezing. TREATMENT AND PLAN: No chest pain or palpitations. GASTROINTESTINAL: No nausea, vomiting, diarrhea or constipation. GENITOURINARY: No difficulty with urination. EXTREMITIES: No swelling or edema, bilateral lower extremity weakness, MUSCULOSKELETAL: No muscle pain. NEUROLOGIC: Normal. ENDOCRINE: Normal. MENTAL STATUS EXAMINATION: Reveals an alert female with decreased psychomotor activity. Concentration and memory intact. Speech and language are normal. Mood is assessed as depressed. Affect constricted. Insight and judgment are poor . Positive hallucinations. ASSESSMENT AND PLAN: DIAGNOSES: AXIS I: Bipolar disorder, depressed, psychotic. AXIS II: Deferred. AXIS III: Refer to past medical history. TREATMENT PLAN: 1. This patient has been admitted to the [facility] and is being observed closely. 2. She has been placed on medications, specifically Ativan 0.5 mg twice a day, Celexa 20 mg a day, trazodone 100 mg at bedtime and Seroquel was increased to 200 mg b.i.d. 3. She is participating in groups and therapies. 4. She will be discharged to a [facility] setting when it is felt she represents no risk or danger to herself or others. Stephan Wu MD DR: JASWANT/lux JOB# [id number]
[2018-05-10] MEDS: DIABETA PO SCH (12:04)
[2018-05-10] MEDS: HUMULIN R SUBCUT PRN (12:07)
--- NOTE | 2018-05-10 13:39 | NUR ---
[facility] DENIAL: SS REACHED OUT [facility] PER PT'S REQUEST. SS VISITED WITH LUIS WHOM STATED PT WOULD HAVE IN DEPTH PAPERWORK SHE WOULD HAVE TO FILL OUT PRIOR TO ADMISSION. SS LET LUIS KNOW THAT PT COULD FILL OUT HER OWN PAPER WORK, AND SHE COULD FAX IT AND THIS WORKER WOULD HELP HER FILL IT OUT. AFTER REVIEWING CLINICAL [facility] CALLED BACK AND STATED THEY WOULD NOT BE ABLE TO TAKE PT. SS LET PT KNOW WHOM STATED "WELL THEN I JUST WANT TO GO HOME. NONE OF THE NURSING HOMES IN [place] WILL TAKE ME". SS LET PT KNOW SHE COULD TRY [facility] IF NOT WOULD PT BE OKAY WITH GOING BACK TO [facility]. PT STATED YEAH TRY THAT FIRST. SS FAXED OVER CLINICAL TO [facility] AND AT THIS TIME PT IS PENDING ACCEPTANCE INTO [facility].
--- NOTE | 2018-05-10 17:20 | NUR ---
PIRP P: Alteration in mood I: q15 min monitoring, assess for depression/anxiety/irritability, provide safe and supportive environment, encourage participation in treatment plan, give clear and simple instructions, redirect with verbalization, teach and model appropriate boundaries, give medications as ordered, provide education regarding discharge planning and safety measures, provide task-oriented activities R: Pt has had flat affect majority of shift, is pleasant when interaction with staff and peers. Denies depression, anxiety, SI/HI. No hallucinations or delusions noted. States, "I'm doing fine. I'm ready to go home." Pt denies wanting to go back to [facility] and has requested SW look into placing her into different facility, preferably near or in [place]. Has participated in group activities, takes medications as ordered. Irritable @ times, but is able to be redirected with verbalization. P: Clinical info sent to [facility], pt agreeable to plan.
[2018-05-10] MEDS ORDERED: CITA20TA9 PO (18:22)
[2018-05-10] MEDS ORDERED: QUET100T4 PO (18:22)
[2018-05-10 20:15] VITALS: BP 106/57
[2018-05-10] MEDS: LIPITOR PO SCH (20:43)
[2018-05-10] MEDS: REQUIP PO SCH (20:43)
[2018-05-10] MEDS: DESYREL PO SCH (20:43)
[2018-05-10] MEDS: TYLENOL PO PRN (20:44)
[2018-05-10] MEDS: LANTUS SQ SCH (21:09)
--- NOTE | 2018-05-11 04:56 | NUR ---
PIRP P DTS, DTO, Alteration in Mood I Medications to be provided as ordered by . Observe patient every 15 minutes for safety. No self harm behaviors will be displayed. Encourage ways to deal with stress. Encourage group attendance. R Patient has remained medication compliant. Patient has been observed every 15 minutes. Patient has not displayed any self harming behaviors. Patient aware of being discharged soon and is thinking about where she wants to live. Patient is aware someone is coming to reassess her for nursing facility. Patient has been cooperative . Patient did come to have snack. P Continue plan of care.
[2018-05-11] MEDS: SYNTHROID PO SCH (05:38)
[2018-05-11 07:44] VITALS: BP 147/76
[2018-05-11] MEDS: HUMULIN R SUBCUT PRN ×3 (08:40→17:05)
[2018-05-11] MEDS: MIRALAX PO SCH (08:53)
[2018-05-11] MEDS: SINEMET 25/100 PO SCH ×3 (08:53→20:25)
[2018-05-11] MEDS: NICOTINE 21MG PATCH TD SCH (08:53)
[2018-05-11] MEDS: ZESTRIL PO SCH (08:54)
[2018-05-11] MEDS: TOPAMAX PO SCH ×2 (08:54→20:25)
[2018-05-11] MEDS: GLUCOPHAGE PO SCH ×2 (08:55→17:01)
[2018-05-11] MEDS: SEROQUEL PO SCH ×2 (08:55→20:25)
[2018-05-11] MEDS: DITROPAN PO SCH (08:55)
[2018-05-11] MEDS: CELEXA PO SCH (08:56)
[2018-05-11] MEDS: ATIVAN PO SCH ×2 (08:56→20:25)
[2018-05-11] MEDS: COLACE PO SCH ×3 (08:57→20:25)
[2018-05-11] MEDS: ASPIRIN EC PO SCH (08:57)
[2018-05-11] MEDS: PROTONIX PO SCH (08:57)
[2018-05-11] MEDS: LYRICA PO SCH ×2 (08:57→20:25)
[2018-05-11] MEDS: TOPROL XL PO SCH (08:57)
[2018-05-11] MEDS: RESTASIS OP SCH ×2 (08:59→20:25)
[2018-05-11] MEDS: DIABETA PO SCH (12:00)
--- NOTE | 2018-05-11 15:08 | NUR ---
[facility] DENIAL: AFTER SENDING A WORKER OUT TO ASSES PT [facility] CALLED AND STATED "WE DO NOT FILL THAT PT WOULD BE A GOOD FIT HERE ESPECIALLY SINCE SHE DID NOT WANT TO SEE OUR PSYCHIATRIST DR. AGUILLON". SS LET PT KNOW THEY HAD DENIED AND THAT SHE WAS GOING TO FAX HER CLINICALS TO [facility] FOR THEM TO REVIEW. PT VERBALIZED UNDERSTANDING. [facility] WORKER CALLED AND STATED SHE WAS BEHIND AND WOULD NOT BE ABLE TO MAKE IT UNTIL 05/12/18 FOR FACE TO FACE ASSESSMENT BUT IT SHE MAY NOT BE ABLE TO GET IT TYPED INTO THE COMPUTER UNTIL 05/15/18 SINCE THEY HAVE SEVEN DAYS TO COMPLETE ASSESSMENT . GOAL IS FOR PT TO DISCHARGE BACK TO [facility] AFTER [facility] ASSESSMENT IS COMPLETE IF THEY ARE ABLE TO COME AND GET HER.
--- NOTE | 2018-05-11 17:34 | NUR ---
PIRP P: Alteration in mood I: Monitor for changes in usual behavior, q15 min monitoring, give clear and simple instructions, set clear and appropriate boundaries, redirect with verbalization, assess reasons for depression/anxiety/irritability, teach coping skills r/t placement, educate regarding appropriate interaction with peers, provide task-oriented activities, provide 1:1 to encourage expression of feelings, provide safe and supportive environment R: Pt has had flat affect throughout shift. Irritable @ times, but mostly pleasant when approached. Rates depression and anxiety @ 10 on 0-10 scale. States, "I was just fine until that woman came and told me I couldn't see Dr. Wu @ that place. She said I'd have to see Dr. Valente, and I don't want him." Pt has not been tearful or voiced any thoughts of wanting to hurt self. Takes medications as ordered, participates in group activities with prompting. P: Plans for pt to discharge to nursing facility once accepted.
[2018-05-11 19:15] VITALS: BP 105/63
[2018-05-11] MEDS: LIPITOR PO SCH (20:25)
[2018-05-11] MEDS: DESYREL PO SCH (20:25)
[2018-05-11] MEDS: REQUIP PO SCH (20:25)
[2018-05-11] MEDS: LANTUS SQ SCH (20:59)
--- NOTE | 2018-05-12 04:56 | NUR ---
PIRP P DTS, DTO, Alteration in Mood I Patient will continue being medication compliant. Patient cope with stress in constructive ways. Patient will not display any self harming behaviors. Monitor every 15 minutes for safety. Encourage group interaction. Decrease any threatening assaultive behaviors. Encourage 8 hours of sleep per night. R Patient has been medication compliant. Patient has not displayed any negative behaviors in dealing with stress . Patient aware that she may have to go back to [facility]. Patient has not displayed any self harming behaviors. Patient has been observed every 15 minutes. Patient has been visiting with other patients and has not displayed any assaultive behavior. Patient has been getting a restful nights sleep. Has only been up to bathroom. P Continue plan of care
[2018-05-12] MEDS: SYNTHROID PO SCH (06:20)
[2018-05-12] MEDS: NICOTINE 21MG PATCH TD SCH (08:27)
[2018-05-12] MEDS: SEROQUEL PO SCH (08:27)
[2018-05-12] MEDS: MIRALAX PO SCH (08:28)
[2018-05-12] MEDS: CELEXA PO SCH (08:28)
[2018-05-12] MEDS: PROTONIX PO SCH (08:28)
[2018-05-12] MEDS: COLACE PO SCH ×2 (08:28→16:19)
[2018-05-12] MEDS: TOPROL XL PO SCH (08:28)
[2018-05-12] MEDS: ATIVAN PO SCH (08:28)
[2018-05-12] MEDS: DITROPAN PO SCH (08:28)
[2018-05-12] MEDS: TOPAMAX PO SCH (08:28)
[2018-05-12] MEDS: ASPIRIN EC PO SCH (08:28)
[2018-05-12] MEDS: SINEMET 25/100 PO SCH ×2 (08:29→16:19)
[2018-05-12] MEDS: RESTASIS OP SCH (08:29)
[2018-05-12] MEDS: GLUCOPHAGE PO SCH (08:29)
[2018-05-12] MEDS: ZESTRIL PO SCH (08:29)
[2018-05-12] MEDS: LYRICA PO SCH (08:30)
[2018-05-12 08:50] VITALS: BP 129/70
[2018-05-12] MEDS: DIABETA PO SCH (12:02)
[2018-05-12] MEDS: HUMULIN R SUBCUT PRN (12:03)
--- NOTE | 2018-05-12 12:14 | NUR ---
C FACE TO FACE: SHERIF MARTÍNEZ, FROM [facility] CAME AND COMPLETED FACE TO FACE EVALUATION. PT IS PASRR NEGATIVE.
[2018-05-12] MEDS ORDERED: NICO-450 TD (14:48)
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
--- NOTE | 2018-05-12 17:00 | NUR ---
Discharge Note: Patient discharged to [facility] and rehab. Report called to [facility] to Carmelita DURÁN earlier today.
[2018-05-12 17:28] VITALS: BP 129/70
[2018-05-13] MEDS ORDERED: NICOTINE 21MG PATCH TD SCH (09:00)
== END 2018-05-12 17:00 | DRG 885 ==
LOC: GP 09:10 → EEVIPCON 09:10
PROVIDERS: ADMIT Psychiatry & Neurology Psychiatry; ATTEND Psychiatry & Neurology Psychiatry
DX: F31.5 Bipolar disorder, current episode depressed, severe, with psychotic features (principal); R45.851 Suicidal ideations; N39.0 Urinary tract infection, site not specified; J44.9 Chronic obstructive pulmonary disease, unspecified; G20 Parkinson's disease; E03.9 Hypothyroidism, unspecified; E11.42 Type 2 diabetes mellitus with diabetic polyneuropathy; I10 Essential (primary) hypertension; I25.10 Atherosclerotic heart disease of native coronary artery without angina pectoris; F41.1 Generalized anxiety disorder; E78.5 Hyperlipidemia, unspecified; Z62.810 Personal history of physical and sexual abuse in childhood; Z72.0 Tobacco use; Z88.5 Allergy status to narcotic agent; Z88.2 Allergy status to sulfonamides; Z79.4 Long term (current) use of insulin; Z79.899 Other long term (current) drug therapy; Z81.8 Family history of other mental and behavioral disorders
CPT/HCPCS: 82948; 97150; 97166; 97530; J1815; J3490; C9399